=== PATIENT | male | born 1930 | race Caucasian/White ===

== ENCOUNTER 2017-08-07 12:42 | Inpatient (IN) | payer OTHER, MEDICARE ==
[~2017-08-07] VITALS: Ht 165.1 cm; Wt 78.1 kg
--- NOTE | 2017-08-07 12:57 | ED NEURO DEFICIT/STROKE ---
History of Present Illness General Chief Complaint: General Adult Stated Complaint: BIBA FOR GENERAL WEAKNESS Source: old records, EMS Exam Limitations: clinical condition, dementia Vital Signs & Intake/Output Vital Signs & Intake/Output Vital Signs Date Time Temp Pulse Resp B/P B/P Pulse O2 O2 Flow FiO2 Mean Ox Delivery Rate 08/07 1424 88 18 119/64 99 Room Air 08/07 1247 96.4 84 20 97/62 97 Room Air Allergies Coded Allergies: selegiline (UNKNOWN 08/07/17) Reconcile Medications Aspirin (Aspirin*) 325 MG TABLET 1 TAB PO DAILY HEART HEALTH (Reported) Carbidopa/Levodopa (Sinemet 25-100 MG Tablet) 25 MG-100 MG TABLET 1 TAB PO TID PARKINSON'S (Reported) Divalproex Sodium (Depakote Sprinkle) 125 MG CAP.SPRINK 1 CAP PO BID UNKNOWN (Reported) Escitalopram Oxalate (Lexapro) 10 MG TABLET 1 TAB PO DAILY DEPRESSION ( Reported) Lisinopril 5 MG TABLET 1 TAB PO DAILY BP (Reported) Metoprolol Tartrate 25 MG TABLET 1 TAB PO BID HIGH BP (Reported) Multivitamin (Daily Value) 1 EACH TABLET 1 TAB PO DAILY SUPPLEMENT (Reported) Polyethylene Glycol 3350 (Miralax) 17 GRAM POWD.PACK 1 PAC PO DAILY CONSTIPATION (Reported) dissolve in water Potassium Chloride (Klor-Con Sprinkle) 10 MEQ CAPSULE.ER 20 MEQ PO DAILY HYPOKALEMIA (Reported) Sennosides/Docusate Sodium (Senokot-S Tablet) 8.6 MG-50 MG TABLET 1 TAB PO AT BEDTIME CONSTIPATION (Reported) Triage Note: PT BIBA FROM [facility] WITH GEN WEAKNESS. STAFF IS QUESTIONING A LT SIDED WEAKNESS. PT HAS HX OF DEMENTIA AND PARKINSONS. NOTED WITH DROOLING TO RT SIDE OF MOUTH. PT NONVERBAL FOR EVAL. PT UNABLE TO FOLLOW COMMANDS FOR EVAL. UNABLE TO ACCURATELY ASSESS NEURO EXAM. PER ECF PT IS NORMALLY MORE ALERT. Triage Nurses Notes Reviewed? yes Onset: Abrupt Duration: constant Timing: single episode today Severity: severe New Weakness: LUE, LLE, left facial HPI: Patient is an 87-year-old male with a past medical history of hypertension, major depressive disorder, thyrotoxicosis, Parkinson's dementia, atrial fibrillation who was brought in by ambulance from his [facility] in which history is limited due to clinical presentation and past medical history in which W 10 indicates and EMS indicates that at approximately 830-9 AM staff noticed patient had to have mental status changes and acute onset of left-sided upper and lower extremity weakness and left-sided facial droop. Symptoms still continue I discussed the patient with the care home facility nurse who states that patient's baseline is alert and oriented and staff noted at breakfast today around 9 AM the patient was drooling and not swallowing his apple juice where symptoms still persisted of left-sided facial droop and lower extremity and upper extremity weakness and patient was brought in by ambulance (González Polanco) Past History Travel History Traveled to [place] past 21 day No Medical History Any Pertinent Medical History? see below for history Cardiovascular: AFIB, hypertension Other Medical Hx: PARKINSONS DEMENTIA Surgical History Surgical History: unobtainable Family History Hx Contributory? No (González Polanco) Review of Systems Review of Systems Constitutional: Reports: see HPI, weakness. EENTM: Reports: no symptoms. Respiratory: Reports: no symptoms. Cardiovascular: Reports: no symptoms. GI: Reports: no symptoms. Genitourinary: Reports: no symptoms. Musculoskeletal: Reports: see HPI. Skin: Reports: no symptoms. Neurological/Psychological: Reports: no symptoms. Hematologic/Endocrine: Reports: no symptoms. Immunologic/Allergic: Reports: no symptoms. All Other Systems: Reviewed and Negative (González Polanco) Physical Exam Physical Exam General Appearance: no apparent distress, lethargic Head: atraumatic Eyes: Bilateral: PERRL, EOMI. Ears, Nose, Throat: moist mucous membrane Neck: normal inspection Respiratory: no respiratory distress Cardiovascular: irregularly irregular Gastrointestinal: normal bowel sounds, soft, non-tender Cranial Nerves: PERRL, facial asymmetry, facial droop Motor/Sensory: weak motor strength LUE, weak motor strength LLE Skin: intact Comments: Noted left eye ptosis and surrounding erythema and yellow purulence Noted left-sided facial and mouth droop Left upper extremity unable to move no resistance against gravity Left lower extremity unable to move no resistance against gravity Right upper extremity resistance against gravity Right lower extremity resistance against gravity Core Measures CVA/TIA Diagnosis: Yes NIH Stroke Scale NIH Stroke Scale Response Value Level of Consciousness drowsy 1 LOC Commands obeys one correctly 1 Best Gaze normal 0 Visual [place] no visual loss 0 Facial Paresis partial 2 Motor Arm - Left no drift 0 Motor Arm - Right no drift 0 Motor Leg - Left no effort against gravity 3 Motor Leg - Right no effort against gravity 3 Best Language mute 3 Dysarthria intubated/physical mahad 0 Total 13 Date Last Known Well: 08/07/17 Time Last Known Well: 09 Symptom Start Date: 08/07/17 Symptom Start Time: 0830 Swallow Evaluation Fail Swallow eval date 08/07/17 Swallow eval time 1300 Sepsis Present: No Sepsis Focused Exam Completed? No (Carolann CHO,González) Progress Differential Diagnosis: acute glaucoma, Viera's Palsy, drug intoxication, electrolyte imbalance, encephalitis, hypoglycemia, intracranial Hem., intracranial mass/tumor, meningitis, migraine FERRER, seizure disorder, stroke, subarachnoid Hem., vertebrobasilar insuff. Plan of Care: Orders Procedure Date/time Status LACTIC ACID 08/07 UNK Complete Nothing by Mouth 08/07 D Active LACTIC ACID 08/07 1556 Active Patient Data 08/07 1445 Active ED Holding Orders 08/07 1441 Active Admit to inpatient 08/07 1441 Active Vital Signs 08/07 1441 Active Code Status 08/07 1441 Active Intake & Output 08/07 1337 Active THYROID STIMULATING HORMONE 08/07 1326 Complete MAGNESIUM 08/07 1326 Complete FREE T4 08/07 1326 Complete NIH Stroke Scale 08/07 1300 Active TROPONIN LEVEL 08/07 1256 Complete COMPREHENSIVE METABOLIC PANEL 08/07 1256 Complete CBC WITHOUT DIFFERENTIAL 08/07 1256 Complete EKG 08/07 1256 Active Laboratory Tests 08/07/17 1420: Lactic Acid 2.4 H 08/07/17 1326: Anion Gap 13, Estimated GFR > 60, BUN/Creatinine Ratio 27.1 H, Glucose 73, Calcium 8.6, Magnesium 1.9, Total Bilirubin 1.2, AST 15 L, ALT 16 L, Alkaline Phosphatase 195 H, Troponin I 0.01, Total Protein 5.8 L, Albumin 3.1 L, Globulin 2.7, Albumin/Globulin Ratio 1.1, TSH 0.623, Free T4 1.21, CBC w Diff NO MAN DIFF REQ, RBC 4.62 L, MCV 90.6, MCH 29.7, MCHC 32.8 L, RDW 14.7 H, MPV 7.9, Gran % 73.5, Lymphocytes % 14.8 L, Monocytes % 9.0, Eosinophils % 2.0, Basophils % 0.7, Absolute Granulocytes 5.6, Absolute Lymphocytes 1.1 L, Absolute Monocytes 0.7 H, Absolute Eosinophils 0.1, Absolute Basophils 0.1 08/07/17 1302: Magnesium Cancelled, TSH Cancelled, Free T4 Cancelled Patient on initial examination and due to past medical history and presentation has concerns of CVA with left-sided deficit Patient passed gag reflex and however was not able to swallow 3 ounces of water Initial CT scan was unremarkable for hemorrhage Aspirin was administered AK I placed a phone call left a message to patient's primary contact daughter Jacqueline RICHARDSON Patient's daughter did present to the emergency room I discussed my concerns of CVA in which she was aware patient is a DNR per power of real estate associate attorney and medical records 1400 - Discussed patient with Dr. Murphy who advised the patient could be a candidate for TPA in which the family members left the emergency room for this discussion I made several attempts to call patient's daughter on cell phone and home phone number to call me back to discuss tPA administration The daughter did call back in which they were made aware of risks and benefits of TPA declined TPA administration for [place] Dr. Benitez discussed admission with hospitalist Diagnostic Imaging: Viewed by Me: CT Scan. Discussed w/RAD: CT Scan. Radiology Impression: no acute abnormality Initial ED EKG: AFIB, 83 BPM,AFIB Comments: PATIENT: LONI DAVISON PRESENT AGE: 87 PATIENT ACCOUNT NO: [id number] : [birth year] LOCATION: [facility] ORDERING PHYSICIAN: González CHO SERVICE DATE: 08/07/17 EXAM TYPE: CAT - CT HEAD WO IV CONTRAST EXAMINATION: CT HEAD WITHOUT CONTRAST CLINICAL INFORMATION: Left-sided weakness, CVA. COMPARISON: None. TECHNIQUE: Contiguous axial imaging was performed from the skull base to vertex without intravenous administration of contrast. DLP: 578.89 mGy-cm FINDINGS: There is no evidence of acute intracranial hemorrhage or territorial infarction. No abnormal mass effect or midline shift is seen. Grubbs to white matter differentiation is well preserved. No extra-axial fluid collections are identified. The ventricles and sulci are commensurately prominent consistent with severe diffuse volume loss. There is extensive low attenuation in the periventricular and subcortical white matter, consistent with chronic microvascular ischemic disease. There are lacunar infarcts in the basal ganglia bilaterally. There are mild calcifications of the cavernous internal carotid arteries bilaterally. There are no acute fractures. There are no large scalp contusions or hematomas. There is trace fluid at the left mastoid tip. The visualized paranasal sinuses are well-aerated. IMPRESSION: 1. There are no acute bleeds or territorial infarct. There is extensive chronic microvascular ischemic disease, and a small area of more acute ischemia cannot be excluded on the basis of this study. 2. This critical result was discussed with González Vuong by telephone on 08/07/2017 1:19 PM and it was ascertained that the content and urgency of the report was understood at the time of direct communication. DICTATED BY: Juan David Reddy MD DATE/TIME DICTATED:08/07/171310 (González Polanco) Departure Departure Disposition: STILL A PATIENT Condition: Guarded Clinical Impression Primary Impression: CVA (cerebral vascular accident) Referrals: Brandy Foote MD (PCP/Family) Departure Forms: Customer Survey General Discharge Information Admission Note Documentation of Exam: Documentation of any treatments & extenuating circumstances including Concerns Regarding Discharge (functional status, medication knowledge or non-compliance, living conditions, etc.) that warrant an admission rather than observation: [ Patient requires telemetry monitoring carotid ultrasounds neurology consultation FREQUENT vital sign check] (González Polanco) Admission Note Spoke With: Miguel Ángel Mccoy MD Documentation of Exam: Documentation of any treatments & extenuating circumstances including Concerns Regarding Discharge (functional status, medication knowledge or non-compliance, living conditions, etc.) that warrant an admission rather than observation: PA/NAVIGATION OFFICER Co-Sign Statement Statement: ED Attending supervision documentation- [X] I saw and evaluated the patient. I have also reviewed all the pertinent lab results and diagnostic results. I agree with the findings and the plan of care as documented in the PA's/NAVIGATION OFFICER's documentation. [X] I have reviewed the ED Record and agree with the PA's/NAVIGATION OFFICER's documentation. [] Additions or exceptions (if any) to the PAs/NAVIGATION OFFICER's note and plan are summarized below: [Last seen normal at 8:30 this morning. Patient has dementia as well as Parkinson's and is unable to provide any history. Patient has left-sided deficits. Neurology has been consult.] (Emmanuel BETH,Cruzito El) Critical Care Note Critical Care Note Critical Care Time: 30-74 min (González Polanco) [Last seen normal at 8:30 this morning. Patient has dementia as well as Parkinson's and is unable to provide any history. Patient has left-sided deficits. Neurology has been consult.] (Emmanuel BETH,Cruzito El) Critical Care Note Critical Care Note Critical Care Time: 30-74 min (González Polanco)
--- NOTE | 2017-08-07 13:24 | CT SCAN REPORT ---
EXAMINATION: CT HEAD WITHOUT CONTRAST CLINICAL INFORMATION: Left-sided weakness, CVA. COMPARISON: None. TECHNIQUE: Contiguous axial imaging was performed from the skull base to vertex without intravenous administration of contrast. DLP: 578.89 mGy-cm FINDINGS: There is no evidence of acute intracranial hemorrhage or territorial infarction. No abnormal mass effect or midline shift is seen. Grubbs to white matter differentiation is well preserved. No extra-axial fluid collections are identified. The ventricles and sulci are commensurately prominent consistent with severe diffuse volume loss. There is extensive low attenuation in the periventricular and subcortical white matter, consistent with chronic microvascular ischemic disease. There are lacunar infarcts in the basal ganglia bilaterally. There are mild calcifications of the cavernous internal carotid arteries bilaterally. There are no acute fractures. There are no large scalp contusions or hematomas. There is trace fluid at the left mastoid tip. The visualized paranasal sinuses are well-aerated. IMPRESSION: 1. There are no acute bleeds or territorial infarct. There is extensive chronic microvascular ischemic disease, and a small area of more acute ischemia cannot be excluded on the basis of this study. 2. This critical result was discussed with González Vuong by telephone on 08/07/2017 1:19 PM and it was ascertained that the content and urgency of the report was understood at the time of direct communication.
[2017-08-07 13:40] LABS: ABSOLUTE BASOPHIL COUNT 0.1 /CUMM (0.0-0.2); ABSOLUTE EOSINOPHIL COUNT 0.1 /CUMM (0.0-0.7); ABSOLUTE GRANULOCYTE CT 5.6 /CUMM (1.4-6.5); ABSOLUTE LYMPH COUNT 1.1 /CUMM (1.2-3.4); ABSOLUTE MONOCYTE COUNT 0.7 /CUMM (0.10-0.60); BASOPHIL % 0.7 % (0.0-2.0); GRANULOCYTE % 73.5 % (42.2-75.2); HEMATOCRIT 41.9 % (42-52); MEAN CORPUSCULAR HGB 29.7 PG (27.0-31.0); MEAN CORPUSCULAR HGB CONC 32.8 G/DL (33.0-37.0); MEAN CORPUSCULAR VOLUME 90.6 FL (80.0-94.0); MEAN PLATELET VOLUME 7.9 FL (7.4-10.4); PLATELET COUNT 155 /CUMM (130-400); RBC DISTRIBUTION WIDTH 14.7 % (11.5-14.5); RED BLOOD CELL CT 4.62 /CUMM (4.70-6.10); WHITE BLOOD CELL COUNT 7.6 /CUMM (4.8-10.8)
[2017-08-07] MEDS ORDERED: ASPIRIN325 M2 PO (14:01)
[2017-08-07] MEDS ORDERED: DAILY VALUE1 EACH PO (14:01)
[2017-08-07] MEDS ORDERED: LEXAPRO10 M1 PO (14:02)
[2017-08-07] MEDS ORDERED: MIRALAX17 G1 PO (14:03)
[2017-08-07] MEDS ORDERED: [UNRECOGNIZED DRUG - OTHER] PO (14:03)
[2017-08-07] MEDS ORDERED: DEPAKOTE SPRIN125 M1 PO (14:04)
[2017-08-07] MEDS ORDERED: METOPROLOL TART25 M1 PO (14:04)
[2017-08-07] MEDS ORDERED: SINEMET 25-1001 EACH PO (14:05)
[2017-08-07] MEDS ORDERED: LISINOPRIL5 M1 PO (14:05)
[2017-08-07] MEDS ORDERED: SENOKOT-S TABL1 EACH PO (14:06)
--- NOTE | 2017-08-07 14:19 | CT SCAN REPORT ---
EXAMINATION: CT SCAN OF THE ORBITS WITHOUT CONTRAST CLINICAL INDICATION: Left orbital erythema. Evaluate orbital or periorbital cellulitis. COMPARISON: None. TECHNIQUE: CT scan of the orbits was obtained in the axial plane without intravenous contrast. The data was postprocessed at the microbiology technologist workstation with generation of coronal and sagittal reformatted images. Images are suboptimal due to patient positioning and kyphosis. DLP: 578.89 mGy-cm. FINDINGS: There is mild soft tissue swelling along the left infraorbital soft tissues laterally. The globes are symmetric. The lenses are in normal position. The extraocular muscles are symmetric and normal in appearance. The retrobulbar fat is maintained. The lacrimal glands appear normal. The superior ophthalmic veins are not well visualized. Views through the sella are unremarkable. Intracranially, there is commensurate prominence of the ventricles and sulci consistent with severe diffuse volume loss. IMPRESSION: 1. There is mild soft tissue swelling along the left infraorbital soft tissues laterally. Both globes appear intact. Suboptimal study due to patient positioning and angulation. 2. There is commensurate prominence of the ventricles and sulci consistent with severe diffuse volume loss.
--- NOTE | 2017-08-07 14:59 | History & Physical ---
General Information and HPI Allergies/Medications Allergies: Coded Allergies: selegiline (UNKNOWN 08/07/17) Home Med list Aspirin (Aspirin*) 325 MG TABLET 1 TAB PO DAILY HEART HEALTH (Reported) Carbidopa/Levodopa (Sinemet 25-100 MG Tablet) 25 MG-100 MG TABLET 1 TAB PO TID PARKINSON'S (Reported) Divalproex Sodium (Depakote Sprinkle) 125 MG CAP.SPRINK 1 CAP PO BID UNKNOWN (Reported) Escitalopram Oxalate (Lexapro) 10 MG TABLET 1 TAB PO DAILY DEPRESSION ( Reported) Lisinopril 5 MG TABLET 1 TAB PO DAILY BP (Reported) Metoprolol Tartrate 25 MG TABLET 1 TAB PO BID HIGH BP (Reported) Multivitamin (Daily Value) 1 EACH TABLET 1 TAB PO DAILY SUPPLEMENT (Reported) Polyethylene Glycol 3350 (Miralax) 17 GRAM POWD.PACK 1 PAC PO DAILY CONSTIPATION (Reported) dissolve in water Potassium Chloride (Klor-Con Sprinkle) 10 MEQ CAPSULE.ER 20 MEQ PO DAILY HYPOKALEMIA (Reported) Sennosides/Docusate Sodium (Senokot-S Tablet) 8.6 MG-50 MG TABLET 1 TAB PO AT BEDTIME CONSTIPATION (Reported) Past History Travel History Traveled to [place] past 21 day No Medical History Neurological: dementia, Parkinson's disease EENT: cataracts Cardiovascular: AFIB, hypertension Psychiatric: depression Other Medical Hx: PARKINSONS DEMENTIA Surgical History Surgical History: unobtainable Past Family/Social History Psychosocial History ETOH Use: denies use Illicit Drug Use: denies illicit drug use Core Measures/Misc (03/16) Cerebrovascular Accident CVA/TIA Diagnosis: Yes Date Last Known Well: 08/07/17 Time Last Known Well: 0900 Symptom Start Date: 08/07/17 Symptom Start Time: 0830 Swallow Evaluation Fail
--- NOTE | 2017-08-07 14:59 | History & Physical ---
Annamaria Escalante MD,[facility] 08/07/17 1458: General Information and HPI MD Statement: I have seen and personally examined LONI DAVISON and documented this H&P. The patient is a 87 year old M who presented with a patient stated chief complaint of [altered mental status and weakness]. Source of Information: old records, W10 Exam Limitations: unable to give history History of Present Illness: Patient is a 87 y M with PMH of afib (on Aspirin), thyrotoxicosis, HTN, MDD and parkinson was BIBA to ED for evaluation of left side weakness and change in mental status. Patient was not able to verbalize himself during the interview and previous records and information from ED department long with phone interview with night worker "KAITLYN" and daughter Jacqueline were interviewed for completing history. Patient is a resident of [facility]. According to the records patient was in his usual state of health till this morning around 9am that he was found with staff to be more confused, he was also found to have drooling and was not able to swallow his apple juice. He also had weakness of left chris upper and lower extremity weakness. EMS was called and patient was brought to ED. According to the records in his baseline patient has advanced dementia, doesn't walk, rarely talks and answers to question with yes and no, is more alert compared to today. Daughter noted that she last visited him on June 01 but in his baseline he is able to talk but no walking. Daughter or nursing facility were not ever of the reason for not being on anticoagulation due to PCP. They didn't know the last time for hospitalization but noted that most of the care was done in [facility]. He also follows Dr Foote as his PCP. Allergies/Medications Allergies: Coded Allergies: selegiline (UNKNOWN 08/07/17) Home Med list Aspirin (Aspirin*) 325 MG TABLET 1 TAB PO DAILY HEART HEALTH (Reported) Carbidopa/Levodopa (Sinemet 25-100 MG Tablet) 25 MG-100 MG TABLET 1 TAB PO TID PARKINSON'S (Reported) Divalproex Sodium (Depakote Sprinkle) 125 MG CAP.SPRINK 1 CAP PO BID UNKNOWN (Reported) Escitalopram Oxalate (Lexapro) 10 MG TABLET 1 TAB PO DAILY DEPRESSION ( Reported) Lisinopril 5 MG TABLET 1 TAB PO DAILY BP (Reported) Metoprolol Tartrate 25 MG TABLET 1 TAB PO BID HIGH BP (Reported) Multivitamin (Daily Value) 1 EACH TABLET 1 TAB PO DAILY SUPPLEMENT (Reported) Polyethylene Glycol 3350 (Miralax) 17 GRAM POWD.PACK 1 PAC PO DAILY CONSTIPATION (Reported) dissolve in water Potassium Chloride (Klor-Con Sprinkle) 10 MEQ CAPSULE.ER 20 MEQ PO DAILY HYPOKALEMIA (Reported) Sennosides/Docusate Sodium (Senokot-S Tablet) 8.6 MG-50 MG TABLET 1 TAB PO AT BEDTIME CONSTIPATION (Reported) Past History Travel History Traveled to [place] past 21 day No Medical History Neurological: dementia, Parkinson's disease EENT: cataracts Cardiovascular: AFIB, hypertension Psychiatric: depression Other Medical Hx: PARKINSONS DEMENTIA Surgical History Surgical History: unobtainable Past Family/Social History Psychosocial History ETOH Use: denies use Illicit Drug Use: denies illicit drug use Review of Systems Review of Systems Constitutional: Reports: see HPI. Comments Patient is not cooperative, could not verbalize himslef Exam & Diagnostic Data Last 24 Hrs of Vital Signs/I&O Vital Signs Date Time Temp Pulse Resp B/P B/P Pulse O2 O2 Flow FiO2 Mean Ox Delivery Rate 08/07 1424 88 18 119/64 99 Room Air 08/07 1247 96.4 84 20 97/62 97 Room Air Physical Exam General Appearance Alert, Oriented X3, No Acute Distress, not cooperative Patient is not cooperative, could not verbalize himslef, completel neuro exam is not possible Skin Temp/Moisture Exam: Warm/Dry Sepsis Skin Exam (color): Normal for Ethnicity HEENT Atraumatic, EOMI, Mucous Membr. moist/pink, bilateral eye, discharge, patient not cooperative, pupil reflex is not possible Cardiovascular Normal S1, Normal S2, irregular irreg Abdomen Soft, No Tenderness Extremities No Edema Assessment/Plan Assessment: 87 y M, left side hemiparesis and change in mental status PMH of afib (on Asprin), thyrotoxicosis, HTN, MDD and parkinsons VS, Ph Ex at admission: Right-sided hemiparesis, conjunctivitis, BP 97/62, then increased to 11 9/64, DC 84, RR 20, no fever Labs at admission: Hgb 13.7, WBC 7.6, PLT 155, BEP insignificant, lactic acid 2.4, alkaline phosphatase 195, albumin 3.1, Imagings at admission: Head CT: There are no acute bleeds or territorial infarct. There is extensive chronic microvascular ischemic disease, and a small area of more acute ischemia cannot be excluded on the basis of this study. Patient was admitted to telemetry floor for management of following conditions: Left side weakness, change in mental status CVA left hemiparesis could be best explained by a new CVA, specifically considering underlying afib and on only asprin. - admit to telemetry floor - neurochecks, vital checks - NPO pending swallow evaluation - Rectal aspirin 300 mg - Follow neurology note - We will monitor blood pressure for 24 hours to less than 170 and then restart SUKHJINDER inhibitor for blood pressure control - Lipitor 40 mg by mouth after passing swallow evaluation - PT evalaution Chronic medical condition, A. fib, hypertension Patient NPO for now, we will monitor patient and start home medication after passing the test. We will administer IV medications if needed NPO pending swallow evaluation DVT ppx: PHARMACOLOGICAL AND A LPS DNR/DNI As Ranked By This Provider Problem List: 1. CVA (cerebral vascular accident) Core Measures/Misc (03/16) Acute Coronary Syndrome ACS Diagnosis: No Congestive Heart Failure Congestive Heart Failure Diagnosis No Cerebrovascular Accident CVA/TIA Diagnosis: Yes NIH Stroke Scale: Total 22 Date Last Known Well: 08/07/17 Time Last Known Well: 0900 Symptom Start Date: 08/07/17 Symptom Start Time: 0830 Reason tPA not ordered Medical Contraindication (outside of window) Swallow Evaluation Fail Current/Past Hx AFib/AFlutter Yes No Anticoagulant d/t Medical Contraindication (passed window) VTE (View Protocol) VTE Risk Factors Age>40 No Mechanical VTE Prophylaxis d/t N/A MechProphylax Ordered No VTE Pharm Prophylaxis d/t NA PharmProphylax ordered Sepsis (View protocol) Sepsis Present: No Marisa Morgan 08/07/17 2675: Resident Review Statement Resident Statement: examined this patient, discussed with video production intern, reviewed images, amended to note Other Findings: 87-year-old man with history of A. fib on aspirin, hypertension, Parkinson's, depression was brought by ambulance from [facility] chief complaint of facial drooling, altered mental status, weakness of the left side. Information was obtained from the nursing: Apparently before the patient was able to request his maintenance and able to answer questions with yes and no however after the episode and a.m. he had altered mental status as well as unable to follow commands or answer questions. Upon the interview patient was not cooperative however he was able to tell his name and his date of . ROS was unobtainable from the patient. Physical exam was limited due to patient uncooperation. Heart S1-S2 normal with irregular rate Lungs Limited exam clear frontally Abdomen nontender Patient was able to move his right upper and right lower extremities strengths 4 /5 Unable to take reaction to the light on the right eye due to patient uncooperation left eye was reactive to the light Negative babinisky stest extremity and questionable babinski test on the left lower extremity Patient failed swallow eval EKG showed A. fib, low voltage, heart rate 83, QTC 452 CT head : 1. There are no acute bleeds or territorial infarct. There is extensive chronic microvascular ischemic disease, and a small area of more acute ischemia cannot be excluded on the basis of this study. orbital ct : IMPRESSION: 1. There is mild soft tissue swelling along the left infraorbital soft tissues laterally. Both globes appear intact. Suboptimal study due to patient positioning and angulation. assessment CVA with AMS hx of parkinsons hx of HTN hx of afib on aspirin lactic acidosis redness around the left eye plan admit to telemetry not a candidiate for tpa topical abx for the possible bacterial conjectivitis NPO till offical swallow eval rectal aspirin IV depakote CXR to rule out aspiration hold anti HTN meds keep SPB around 170 with PRN IV metoprolol carotid U/S neurology consult echocardiogram pt/ot/speech IV hydration and trend the lactic acid till normalized NPO, DNR/DNI per w 10, dvt prophylaxis mechanical and levonox Leandro Morgan MD 08/07/17 1561: Attending MD Review Statement Attending Statement Attending MD Statement: examined this patient, discuss w/resident/PA/BAKER DOUGHNUT, agreed w/resident/PA/BAKER DOUGHNUT, reviewed EMR data (avail), reviewed images, amended to note Attending Assessment/Plan: The patient is an 87 yo male resident at [facility] with h/o dementia, afib (on ASA) Parkinson's Disease, HTN, & depression who presented this morning in the ED after being found confused and with left sided weakness. He was evaluated in the ED and by Neurology and felt to have an acute right sided CVA with dense left hemiparesis. Possible use of TPA was discussed with family by Neurology and declined. He was found to have gag reflex, however unable to swallow even liquids. Had been in his usual state of health the day prior. 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 Patient seen by Neurology in ED and TPA was discussed and declined by family. Carotid US negative. Plan: Admit to telemetry service. Agree with ASA suppository daily. IV hydration Permissive HTN- keep BP > 140 if possible DNR/DNI per prior wishes. Re-assess swallow tomorrow. If not improving will need to discuss with family possible comfort measures. #HTN- BP low at present. Plan: Hold Metoprolol- will give IV if BP significantly elevated. Hold Lisinopril. #Atrial Fibrillation- not on anti-coagulation (only ASA) due to fall risk. Plan: ASA as above. Holding Metoprolol at present and will follow HR. #Parkinson's Disease- on Carbidopa/Levodopa Plan: Hold as is NPO.
--- NOTE | 2017-08-07 16:07 | Cons- Neurology ---
General Information and HPI Consulting Request Date of Consult: 08/07/17 Requested By: Leandro Morgan MD Reason for Consult: New onset confusion and weakness Source of Information: old records Exam Limitations: unable to give history, clinical condition, confusion, dementia History of Present Illness: 87 y M with PMH of afib (on Asprin), thyrotoxicosis, HTN, MDD and parkinsons was BIBA to ED for evalaution of left side weakness and change in mental status. Patient was not able to verbalize himself during the interview and previous records and information from ED department was used for completing history. Patient is a resident of [facility]. According to the records patient was in his usual state of health till this morning around 9am that he was found by staff to be more confused, he was also found to have drooling and was not able to swallow his apple juice. He also had weakness of left chris upper and lower extremety weakness. According to the records in his baseline he was more alert and oriented. EMS was called and patient was brought to ED. TPA was not given due to family decision. Allergies/Medications Allergies: Coded Allergies: selegiline (UNKNOWN 08/07/17) Home Med List: Aspirin (Aspirin*) 325 MG TABLET 1 TAB PO DAILY HEART HEALTH (Reported) Carbidopa/Levodopa (Sinemet 25-100 MG Tablet) 25 MG-100 MG TABLET 1 TAB PO TID PARKINSON'S (Reported) Divalproex Sodium (Depakote Sprinkle) 125 MG CAP.SPRINK 1 CAP PO BID UNKNOWN (Reported) Escitalopram Oxalate (Lexapro) 10 MG TABLET 1 TAB PO DAILY DEPRESSION ( Reported) Lisinopril 5 MG TABLET 1 TAB PO DAILY BP (Reported) Metoprolol Tartrate 25 MG TABLET 1 TAB PO BID HIGH BP (Reported) Multivitamin (Daily Value) 1 EACH TABLET 1 TAB PO DAILY SUPPLEMENT (Reported) Polyethylene Glycol 3350 (Miralax) 17 GRAM POWD.PACK 1 PAC PO DAILY CONSTIPATION (Reported) dissolve in water Potassium Chloride (Klor-Con Sprinkle) 10 MEQ CAPSULE.ER 20 MEQ PO DAILY HYPOKALEMIA (Reported) Sennosides/Docusate Sodium (Senokot-S Tablet) 8.6 MG-50 MG TABLET 1 TAB PO AT BEDTIME CONSTIPATION (Reported) Current Medications: Current Medications Sig/Ignacio Start time Last Medication Dose Route Stop Time Status Admin Aspirin 300 MG ONCE ONE 08/07 1330 DC 08/07 MO 08/07 1331 1421 Sodium Chloride 500 ML BOLUS ONE 08/07 1545 AC IV 08/07 1644 Sodium Chloride 1,000 ML BOLUS ONE 08/07 1315 DC 08/07 IV 08/07 1514 1428 Valproate Sodium 125 MG BID 08/07 2200 UNir IV Review of Systems Review of Systems: As per HPI. Past History Travel History Traveled to [place] past 21 day No Medical History Neurological: dementia, Parkinson's disease EENT: cataracts Cardiovascular: AFIB, hypertension Psychiatric: depression Other Medical Hx: PARKINSONS DEMENTIA Surgical History Surgical History: unobtainable Psychosocial History ETOH Use: denies use Illicit Drug Use: denies illicit drug use Exam & Diagnostic Data Vital Signs and I&O Vital Signs Date Time Temp Pulse Resp B/P B/P Pulse O2 O2 Flow FiO2 Mean Ox Delivery Rate 08/07 1424 88 18 119/64 99 Room Air 08/07 1247 96.4 84 20 97/62 97 Room Air Physical Exam: Exam is limited due to the patient's condition and lack of cooperation. Resists eye opening however eyes seemed to have extra ocular movements intact and pupils are equal. Face is also symmetric. There is clear flaccid left arm weakness with left upper proximal leg weakness. Tone is rigid throughout with exception of right arm. Toes upgoing on the left. Patient does not say much response to questions but mumbles. Last 48 Hours of Lab Results: Laboratory Tests 08/07 08/07 08/07 1420 1326 1302 Chemistry Sodium (137 - 145 mmol/L) 143 Potassium (3.5 - 5.1 mmol/L) 4.5 Chloride (98 - 107 mmol/L) 106 Carbon Dioxide (22 - 30 mmol/L) 24 Anion Gap (5 - 16) 13 BUN (9 - 20 mg/dL) 19 Creatinine (0.7 - 1.2 mg/dL) 0.7 Estimated GFR (>60 ml/min) > 60 BUN/Creatinine Ratio (7 - 25 %) 27.1 H Glucose (65 - 99 mg/dL) 73 Lactic Acid (0.7 - 2.1 mmol/L) 2.4 H Calcium (8.4 - 10.2 mg/dL) 8.6 Magnesium (1.6 - 2.3 mg/dL) 1.9 Cancelled Total Bilirubin (0.2 - 1.3 mg/dL) 1.2 AST (17 - 59 U/L) 15 L ALT (21 - 72 U/L) 16 L Alkaline Phosphatase (< 127 U/L) 195 H Troponin I (<0.11 ng/ml) 0.01 Total Protein (6.3 - 8.2 g/dL) 5.8 L Albumin (3.5 - 5.0 g/dL) 3.1 L Globulin (1.9 - 4.2 gm/dL) 2.7 Albumin/Globulin Ratio (1.1 - 2.2 %) 1.1 TSH (0.270 - 4.200 uIU/mL) 0.623 Cancelled Free T4 (0.85 - 1.93 ng/dL) 1.21 Cancelled Hematology CBC w Diff NO MAN DIFF REQ WBC (4.8 - 10.8 /CUMM) 7.6 RBC (4.70 - 6.10 /CUMM) 4.62 L Hgb (14.0 - 18.0 G/DL) 13.7 L Hct (42 - 52 %) 41.9 L MCV (80.0 - 94.0 FL) 90.6 MCH (27.0 - 31.0 PG) 29.7 MCHC (33.0 - 37.0 G/DL) 32.8 L RDW (11.5 - 14.5 %) 14.7 H Plt Count (130 - 400 /CUMM) 155 MPV (7.4 - 10.4 FL) 7.9 Gran % (42.2 - 75.2 %) 73.5 Lymphocytes % (20.5 - 51.1 %) 14.8 L Monocytes % (1.7 - 9.3 %) 9.0 Eosinophils % (0 - 5 %) 2.0 Basophils % (0.0 - 2.0 %) 0.7 Absolute Granulocytes (1.4 - 6.5 /CUMM) 5.6 Absolute Lymphocytes (1.2 - 3.4 /CUMM) 1.1 L Absolute Monocytes (0.10 - 0.60 /CUMM) 0.7 H Absolute Eosinophils (0.0 - 0.7 /CUMM) 0.1 Absolute Basophils (0.0 - 0.2 /CUMM) 0.1 Toxicology Valproic Acid (50 - 120 ug/mL) Pending Imaging/Other Studies: IMPRESSION: 1. There are no acute bleeds or territorial infarct. There is extensive chronic microvascular ischemic disease, and a small area of more acute ischemia cannot be excluded on the basis of this study. 2. This critical result was discussed with González Vuong by telephone on 08/07/2017 1:19 PM and it was ascertained that the content and urgency of the report was understood at the time of direct communication. Assessment/Plan Assessment: 87-year-old man with Parkinson's disease who presents with an left dense hemiparesis could be attributable to either a lacunar syndrome or a larger right hemispheric frontal infarction. The patient has A. fib and is only on baby aspirin and this is likely the cause of the stroke. Recommendations: 1. Nothing by mouth until swallow evaluation completed. 2. Rectal aspirin 300 mg still then. 3. Permissive hypertension for the first 24 hours but did not allow systolic to go above 170. 4. Would then start an SUKHJINDER inhibitor or arm for blood pressure. 5. Would add Lipitor 40 mg by mouth daily. 6. PT and OT. 7. DVT prophylaxis with heparin subcutaneous. 8. Echo and carotids. 9. Telemetry. 10. Continue with current Parkinson meds. Consult Acknowledgment - Thank you for your consult request.
--- NOTE | 2017-08-07 16:57 | RADIOLOGY REPORT ---
EXAMINATION: XR PORTABLE CHEST CLINICAL INFORMATION: Coughing COMPARISON: None TECHNIQUE: Portable frontal view of the chest was obtained. FINDINGS: Low lung volumes perhaps related to suboptimal inspiratory effort. Subtle increased opacity at the bases may reflect atelectasis related to the suboptimal inspiration. Cannot exclude infiltrate. Calcification of the dorsal aorta. Cardiac silhouette within normal limits. Pulmonary vascularity normal. Bone and soft tissues unremarkable. IMPRESSION: Slightly limited exam as the lung volumes are low. Possible bilateral bibasilar atelectasis. Cannot exclude evolving infiltrate or pneumonia/aspiration
--- NOTE | 2017-08-07 17:49 | ULTRASOUND REPORT ---
EXAMINATION: DUPLEX BILATERAL CAROTID ULTRASOUND CLINICAL INFORMATION: CVA. Rule out stenosis.. COMPARISON: None. TECHNIQUE: Duplex bilateral carotid US was performed using real-time ultrasound and Doppler techniques (integrating B-mode 2D vascular images, Doppler spectral analysis and color flow Doppler imaging). These techniques were utilized to interrogate the extracranial carotid and vertebral arteries bilaterally. The degree of stenosis is based off criteria similar to NASCET. FINDINGS: No plaque is seen at the carotid bifurcations or within the internal carotid arteries. All velocities are within normal limits. The vertebral arteries are not visualized bilaterally. The external carotid arteries appear normal. IMPRESSION: No evidence of a hemodynamically significant stenosis involving the internal carotid arteries. The vertebral arteries are not visualized on the current exam.
[2017-08-07 18:17] VITALS: BP 102/68
[2017-08-07 22:12] VITALS: BP 108/70
--- NOTE | 2017-08-07 22:33 | Admission Certification ---
Admission Certification Certification Statement - As attending physician, I certify that at the time of - admission, based on clinical presentation, severity of - symptoms, need for further diagnostic testing and - therapeutic interventions, and risk of adverse outcomes - without in-hospital treatment, in my clinical assessment, - this patient requires an acute hospital stay for a minimum - of two nights or longer. I have also considered psychsocial - factors such as support system, advanced age, financial - issues, cognitive issues, and failed out-patient treatments, - past re-admission history, safety of patient, and lack of - compliance as applicable. Specific rationale supporting this admission is: The patient presents with acute confusion and left sided weakness (upper and lower extremities) c/w significant right sided CVA. H/O Parkinson's and depression- family declined TPA. Will admit to telemetry (in afib) and follow HR. Rectal ASA at present (failed swallow). DNR/DNI and if not improving will need to discuss comfort measures.
[2017-08-08 05:57] VITALS: BP 112/62
--- NOTE | 2017-08-08 07:29 | PN- Housestaff ---
See Addendum Subjective Follow-up For: CVA Tele-Events Since Last Visit: Aquilino santos, pulse rate 77-88 Subjective: Patient visited today, was lying in bed comfortably in no acute distress, was alert, did not answer to questions, did not follow orders. Orientation could not be evalauted. No fever. Failed swallow evalution, planned to repeat tomorrow. LA remained high, increased fluids rate. had conversation with lázaro twice regarding Mr Linares's care. Resident Dr Morgan interviewed daughter regarding consent for IV contrast administration possibly before CT scan for evaluation of increased CT scan. Review of Systems Constitutional: Reports: see HPI. Objective Last 24 Hrs of Vital Signs/I&O Vital Signs Date Time Temp Pulse Resp B/P B/P Pulse O2 O2 Flow FiO2 Mean Ox Delivery Rate 08/08 1435 97.6 88 20 110/68 96 Room Air 08/08 0557 97.8 71 20 112/62 08/07 2212 Room Air 08/07 2212 97.7 91 18 108/70 97 08/07 1817 98.4 93 20 102/68 969 08/07 1744 97.6 91 18 112/75 98 Room Air 08/07 1640 97.7 83 20 130/67 98 Room Air Intake & Output 08/08 1600 08/08 0800 08/08 0000 Intake Total 2000 1600 1075 Output Total 200 Balance 1800 1600 1075 Intake, IV 2000 1600 1075 Output, Urine 200 Patient 172 lb Weight Weight Bed scale Measurement Method Physical Exam General Appearance: Alert, No Acute Distress, not cooperative Skin: No Significant Lesion Skin Temp/Moisture Exam: Warm/Dry Sepsis Skin Exam (color): Normal for Ethnicity HEENT: Atraumatic, Mucous Membr. moist/pink, Atraumatic, EOMI, Mucous Membr. moist/pink, bilateral eye, discharge, patient not cooperative, pupil reflex is not possible Will re-evalaute tomorrow Cardiovascular: Normal S1, Normal S2, irreg irreg Lungs: bilateral crackles and ronchi Abdomen: Soft, No Tenderness Neurological: Could not be evaluated due to patient not being cooperative Extremities: No Edema Current Medications: Current Medications Sig/Ignacio Start time Last Medication Dose Route Stop Time Status Admin Aspirin 300 MG DAILY 08/08 1000 AC 08/08 OR 1307 Dextrose/Sodium 1,000 ML Q13H 08/07 1845 AC 08/08 Chloride IV 1359 Enoxaparin Sodium 40 MG DAILY 08/08 1000 AC 08/08 SC 1307 Erythromycin 1 NATY 4 TIMES/DAY 08/07 1837 AC 08/08 OPH 1307 Sodium Chloride 1,000 ML BOLUS ONE 08/08 1100 DC 08/08 IV 08/08 1159 1227 Sodium Chloride 1,000 ML BOLUS ONE 08/08 0930 DC 08/08 IV 08/08 1029 0926 Sodium Chloride 1,000 ML BOLUS ONE 08/07 1900 DC 08/07 IV 08/07 1959 1916 Sodium Chloride 500 ML BOLUS ONE 08/07 1845 CAN IV 08/07 1944 Sodium Chloride 500 ML BOLUS ONE 08/07 1545 DC 08/07 IV 08/07 1644 1632 Sodium Chloride 1,000 ML BOLUS ONE 08/07 1315 DC 08/07 IV 08/07 1514 1428 Valproate Sodium 125 MG BID 08/07 220 CAN IV Valproate Sodium 125 MG BID 08/07 2200 AC 08/08 Sodium Chloride 50 ML IV 1054 Last 24 Hrs of Lab/Robert Results Last 24 Hrs of Labs/Mics: Laboratory Tests 08/08/17 1405: Lactic Acid 2.8 H 08/08/17 1225: Urinalysis LIGHT H, Urine Color YEL, Urine Clarity CLEAR, Urine pH 6.0, Ur Specific [place] >= 1.030, Urine Protein NEG, Urine Ketones TRACE H, Urine Nitrite NEG, Urine Bilirubin NEG, Urine Urobilinogen 0.2, Ur Leukocyte Esterase TRACE H, Ur Microscopic SEDIMENT EXAMINED, Urine RBC 1-3, Urine WBC 10-15 H, Ur Epithelial Cells OCCAS, Urine Bacteria RARE H, Hyaline Casts 3-5 H, Granular Casts RARE H, Urine Mucus PACKD H, Urine Hemoglobin NEG, Urine Glucose NEG 08/08/17 0722: Anion Gap 13, Estimated GFR > 60, BUN/Creatinine Ratio 22.5, Lactic Acid 3.4 H, Total Bilirubin 1.0, Direct Bilirubin 0.3, AST 14 L, ALT 23, Alkaline Phosphatase 173 H, Creatine Kinase 61, Troponin I 0.04, C-Reactive Prot, Quant 3.9 H, Total Protein 5.4 L, Albumin 2.9 L, CBC w Diff NO MAN DIFF REQ, RBC 4.15 L, MCV 90.7, MCH 30.3, MCHC 33.5, RDW 14.9 H, MPV 8.0, Gran % 69.4, Lymphocytes % 17.6 L, Monocytes % 8.2, Eosinophils % 4.4, Basophils % 0.4, Absolute Granulocytes 4.1, Absolute Lymphocytes 1.0 L, Absolute Monocytes 0.5, Absolute Eosinophils 0.3, Absolute Basophils 0 08/08/17 0300: Lactic Acid 2.6 H 08/07/17 2200: Lactic Acid 2.5 H 08/07/17 1732: Lactic Acid 2.4 H Microbiology 08/08 1405 BLOOD: Blood Culture - RECD 08/08 1400 BLOOD: Blood Culture - RECD 08/08 1225 URINE ROUT: Urine Culture - RECD Assessment/Plan Assessment: 87 y M, left side hemiparesis and change in mental status PMH of afib (on Asprin), thyrotoxicosis, HTN, MDD and parkinsons VS, Ph Ex at admission: Right-sided hemiparesis, conjunctivitis, BP 97/62, then increased to 11 9/64, OR 84, RR 20, no fever Labs at admission: Hgb 13.7, WBC 7.6, PLT 155, BEP insignificant, lactic acid 2.4, alkaline phosphatase 195, albumin 3.1, Imagings at admission: Head CT: There are no acute bleeds or territorial infarct. There is extensive chronic microvascular ischemic disease, and a small area of more acute ischemia cannot be excluded on the basis of this study. Patient was admitted to telemetry floor for management of following conditions: Left side weakness, change in mental status CVA left hemiparesis could be best explained by a new CVA, specifically considering underlying afib and on only asprin. Echo: 1. This was a technically difficult study 2. Mild aortic sclerosis is present with no valvular stenosis. Minimal aortic insufficiency is present. 3. Mitral leaflet thickening is present with mild mitral insufficiency and moderate left atrial enlargement. 4. A small circumferential pericardial effusion is present which is hemodynamically insignificant. 5. The left ventricular chamber size is normal with hyperdynamic systolic function. The ejection fraction is greater than 70%. There are no obvious resting wall motion abnormalities. 6. The right heart structures were not well visualized. Mild tricuspid insufficiency is present. There is no evidence of pulmonary hypertension. 7. There appears to be lipomatous atrial septal hypertrophy present. 8. The patient appeared to be in atrial fibrillation during the examination. Further evaluation with ECG or Holter monitor is recommended if clinically indicated. - Continue telemetry floor - neurochecks, vital checks - Failed swallow evaluation, would be repeated tomorrow - NPO pending swallow evaluation - Rectal aspirin 300 mg - Follow neurology note - We will monitor blood pressure for 24 hours to less than 170 and then restart SUKHJINDER inhibitor for blood pressure control - Lipitor 40 mg by mouth after passing swallow evaluation - PT evalaution Chronic medical condition, A. fib, hypertension Patient is still, we will monitor patient and start home medication after passing the test. We will administer IV medications if needed NPO pending swallow evaluation DVT ppx: PHARMACOLOGICAL AND A LPS DNR/DNI Problem List: 1. CVA (cerebral vascular accident) Pain Ratin Pain Location: None Pain Goal: Pain 4 or less Pain Plan: Continue current plan Tomorrow's Labs & Rationales: CBc BEP
--- NOTE | 2017-08-08 07:51 | ECHOCARDIOGRAM REPORT ---
LONI DAVISON Age: 87 : 1930 Gender: M Exam Date: 08/07/2017 19:39 Exam Location: 1 [address] Ht (in): Wt (lb): BSA: BP: 102 / 68 Ordering Physician: Marisa Morgan MD Referring Physician: Marisa Morgan MD Technologist: Marie Ortega [facility] Room Number: [id number] Indications: STROKE Rhythm: Technical Quality: Fair, Technically difficult study FINDINGS Left Ventricle Normal size left ventricle. No obvious regional wall motion abnormalities. Normal left ventricular ejection fraction estimated at 65-70%. Right Ventricle Right ventricle not well visualized, grossly normal. Right Atrium Normal right atrial size. Left Atrium Moderate left atrial dilatation. Mitral Valve Mitral valve thickened. Mild mitral regurgitation. Aortic Valve Trileaflet aortic valve. Diffuse thickening (sclerosis) of the aortic valve cusps without reduced excursion. No aortic stenosis. Trace aortic regurgitation. Tricuspid Valve Tricuspid valve not well visualized, grossly normal. Mild tricuspid regurgitation. Right ventricular systolic pressure estimated at 28 mmHg. Pulmonic Valve Pulmonic valve not well visualized, grossly normal. Pericardium Small pericardial effusion. Great Vessels Aortic root and proximal ascending aorta not well visualized, grossly normal. CONCLUSIONS 1. This was a technically difficult study 2. Mild aortic sclerosis is present with no valvular stenosis. Minimal aortic insufficiency is present. 3. Mitral leaflet thickening is present with mild mitral insufficiency and moderate left atrial enlargement. 4. A small circumferential pericardial effusion is present which is hemodynamically insignificant. 5. The left ventricular chamber size is normal with hyperdynamic systolic function. The ejection fraction is greater than 70%. There are no obvious resting wall motion abnormalities. 6. The right heart structures were not well visualized. Mild tricuspid insufficiency is present. There is no evidence of pulmonary hypertension. 7. There appears to be lipomatous atrial septal hypertrophy present. 8. The patient appeared to be in atrial fibrillation during the examination. Further evaluation with ECG or Holter monitor is recommended if clinically indicated. Dallin Becerril M.D. (Electronically Signed) Final Date: 08 August 2017 07:50 MEASUREMENTS (Male / Female) Normal Values 2D ECHO LV Diastolic Diameter PLAX 3.2 cm 4.2 - 5.9 / 3.9 - 5.3 cm LV Systolic Diameter PLAX 1.3 cm 2.1 - 4.0 cm LV Fractional Shortening PLAX 59.4 % 25 - 46 % LV Ejection Fraction 2D Teich 89.9 % IVS Diastolic Thickness 1.1 cm LVPW Diastolic Thickness 1.1 cm LV Relative Wall Thickness 0.7 RV Internal Dim ED PLAX 2.7 cm 1.9 - 3.8 cm LVOT Diameter 1.9 cm Aortic Root Diameter 3.1 cm LA Systolic Diameter LX 3.4 cm 3.0 - 4.0 / 2.7 - 3.8 cm LA Volume 41.0 cm 18 - 58 / 22 - 52 cm Ascending Aorta Diameter 3.2 cm DOPPLER AV Peak Velocity 101.0 cm/s AV Peak Gradient 4.1 mmHg AV Mean Velocity 70.4 cm/s AV Mean Gradient 2.0 mmHg AV Velocity Time Integral 25.8 cm LVOT Peak Velocity 60.2 cm/s LVOT Peak Gradient 1.4 mmHg LVOT Mean Velocity 42.5 cm/s LVOT Mean Gradient 1.0 mmHg LVOT Velocity Time Integral 14.9 cm LVOT Stroke Volume 42.2 cm AV Area Cont Eq vti 1.6 cm AV Area Cont Eq pk 1.7 cm MV Peak Velocity 112.0 cm/s MV Peak Gradient 5.0 mmHg MV Mean Velocity 59.1 cm/s MV Mean Gradient 2.0 mmHg Mitral E Point Velocity 80.9 cm/s MV PHT Velocity 118.0 cm/s MV Deceleration [place] 547.0 cm/s MV Pressure Half Time 64.7 ms MV Area PHT 3.4 cm MV Deceleration Time 180.0 ms TR Peak Velocity 250.0 cm/s TR Peak Gradient 25.0 mmHg Right Atrial Pressure 5.0 mmHg Pulmonary Artery Systolic Pressu 30.0 mmHg Right Ventricular Systolic Press 30.0 mmHg PV Peak Velocity 88.4 cm/s PV Peak Gradient 3.1 mmHg PV Mean Velocity 60.1 cm/s PV Mean Gradient 2.0 mmHg PV Velocity Time Integral 16.7 cm LV E' Lateral Velocity 8.5 cm/s Mitral E to LV E' Lateral Ratio 9.5 LV E' Septal Velocity 7.0 cm/s Mitral E to LV E' Septal Ratio 11.5
[2017-08-08 08:10] LABS: ABSOLUTE BASOPHIL COUNT 0 /CUMM (0.0-0.2); ABSOLUTE EOSINOPHIL COUNT 0.3 /CUMM (0.0-0.7); ABSOLUTE GRANULOCYTE CT 4.1 /CUMM (1.4-6.5); ABSOLUTE MONOCYTE COUNT 0.5 /CUMM (0.10-0.60); BASOPHIL % 0.4 % (0.0-2.0); EOSINOPHIL % 4.4 % (0-5); GRANULOCYTE % 69.4 % (42.2-75.2); HEMATOCRIT 37.7 % (42-52); MEAN CORPUSCULAR HGB 30.3 PG (27.0-31.0); MEAN CORPUSCULAR HGB CONC 33.5 G/DL (33.0-37.0); MEAN CORPUSCULAR VOLUME 90.7 FL (80.0-94.0); PLATELET COUNT 151 /CUMM (130-400); RBC DISTRIBUTION WIDTH 14.9 % (11.5-14.5); RED BLOOD CELL CT 4.15 /CUMM (4.70-6.10); WHITE BLOOD CELL COUNT 5.9 /CUMM (4.8-10.8)
[2017-08-08 14:35] VITALS: BP 110/68
--- NOTE | 2017-08-08 16:16 | RADIOLOGY REPORT ---
EXAMINATION: CR PORTABLE CHEST CLINICAL INFORMATION: Coughing. Rule out aspiration. COMPARISON: Chest x-ray dated 08/07/2017. TECHNIQUE: Portable AP semierect view of the chest was obtained. FINDINGS: The cardiac mediastinal silhouette is enlarged, unchanged from the prior study. Calcification, ectasia and tortuosity of the aorta is noted. Low lung volumes are seen. The patient's chin overlies the upper chest, limiting assessment. There are some linear opacities seen in the lung bases bilaterally, left greater than right, similar to the previous study, likely due to atelectasis, though subtle patchy pneumonia in the left lung base cannot be excluded. No significant pleural effusion or pneumothorax is seen. Bony structures are grossly unremarkable. IMPRESSION: 1. Limited assessment. 2. Enlarged cardiac mediastinal silhouette. 3. Low lung volumes with question of subtle pneumonia versus atelectasis in left lung base and mild atelectatic changes in the right lung base. The appearance is unchanged from prior study.
[2017-08-08 22:30] VITALS: BP 110/70
[2017-08-09 06:35] VITALS: BP 96/60
--- NOTE | 2017-08-09 10:21 | PN- Housestaff ---
Jung BETH,Jarad 08/09/17 1021: Subjective Follow-up For: CVA Tele-Events Since Last Visit: Atrial fibrillation Subjective: Patient was seen and examined today. Patient is arousable but drowsy. Follows simple commands. Patient reports no pain. Patient refuses to answer any other questions. Review of Systems Constitutional: Reports: see HPI. Objective Last 24 Hrs of Vital Signs/I&O Vital Signs Date Time Temp Pulse Resp B/P B/P Pulse O2 O2 Flow FiO2 Mean Ox Delivery Rate 08/09 2127 98.1 91 22 96/60 99 08/09 2125 Room Air 08/09 1442 97.1 90 20 90/58 93 08/09 0800 94 Room Air 08/09 0635 98.1 83 20 96/60 94 Room Air Intake & Output 08/09 1600 08/09 0800 08/09 0000 Intake Total 149 477 7721 Output Total Balance 248 577 1018 Intake, IV 486 087 3830 Intake, Oral 0 0 Patient 172 lb Weight Physical Exam General Appearance: No Acute Distress, drowsy but arousable Skin Temp/Moisture Exam: Warm/Dry HEENT: PERRLA Cardiovascular: Normal S1, Normal S2, irregular rate Lungs: Normal Air Movement Abdomen: Normal Bowel Sounds, Soft, No Tenderness Neurological: incomplete neuro exam as patient only follows few commands. unable to assess strength. Limited exam reveals intact sensation. Patient unable to open left eye. Extremities: No Clubbing, No Cyanosis, No Edema, Normal Pulses, No Tenderness/ Swelling Current Medications: Current Medications Sig/Ignacio Start time Last Medication Dose Route Stop Time Status Admin Aspirin 300 MG DAILY 08/08 1000 AC 08/09 MS 1005 Dextrose/Sodium 1,000 ML Q13H 08/07 1845 AC 08/09 Chloride IV 1814 Enoxaparin Sodium 40 MG DAILY 08/08 1000 AC 08/09 SC 1006 Erythromycin 1 NATY 4 TIMES/DAY 08/07 183 AC 08/09 OPH 2016 Potassium Chloride 10 MEQ Q1H 08/09 2000 DC 08/09 IV 08/09 2101 2151 Valproate Sodium 125 MG BID 08/07 2199 AC 08/09 Sodium Chloride 50 ML IV 2014 Last 24 Hrs of Lab/Robert Results Last 24 Hrs of Labs/Mics: Laboratory Tests 08/09/17 1035: Anion Gap 4 L, Estimated GFR > 60, BUN/Creatinine Ratio 22.0, CBC w Diff NO MAN DIFF REQ, RBC 3.62 L, MCV 90.8, MCH 30.2, MCHC 33.3, RDW 14.4, MPV 7.8, Gran % 70.0, Lymphocytes % 14.9 L, Monocytes % 10.1 H, Eosinophils % 4.5, Basophils % 0.5, Absolute Granulocytes 3.6, Absolute Lymphocytes 0.8 L, Absolute Monocytes 0.5, Absolute Eosinophils 0.2, Absolute Basophils 0 08/09/17 0353: Lactic Acid Cancelled 08/09/17 0110: Lactic Acid 1.5 Assessment/Plan Assessment: 87 y M, left side hemiparesis and change in mental status PMH of afib (on Asprin), thyrotoxicosis, HTN, MDD and parkinsons VS, Ph Ex at admission: Right-sided hemiparesis, conjunctivitis, BP 97/62, then increased to 11 9/64, MS 84, RR 20, no fever Labs at admission: Hgb 13.7, WBC 7.6, PLT 155, BEP insignificant, lactic acid 2.4, alkaline phosphatase 195, albumin 3.1, Imagings at admission: Head CT: There are no acute bleeds or territorial infarct. There is extensive chronic microvascular ischemic disease, and a small area of more acute ischemia cannot be excluded on the basis of this study. Patient was admitted to telemetry floor for management of following conditions: Left side weakness, change in mental status CVA left hemiparesis could be best explained by a new CVA, specifically considering underlying afib and on only asprin. Echo: 1. This was a technically difficult study 2. Mild aortic sclerosis is present with no valvular stenosis. Minimal aortic insufficiency is present. 3. Mitral leaflet thickening is present with mild mitral insufficiency and moderate left atrial enlargement. 4. A small circumferential pericardial effusion is present which is hemodynamically insignificant. 5. The left ventricular chamber size is normal with hyperdynamic systolic function. The ejection fraction is greater than 70%. There are no obvious resting wall motion abnormalities. 6. The right heart structures were not well visualized. Mild tricuspid insufficiency is present. There is no evidence of pulmonary hypertension. 7. There appears to be lipomatous atrial septal hypertrophy present. 8. The patient appeared to be in atrial fibrillation during the examination. Further evaluation with ECG or Holter monitor is recommended if clinically indicated. Today patient continued to remain drowsy. Followed simple commands. Patient is currently NPO pending repeat swallow evaluation on 08/11. Patient is on IV fluids. - Continue telemetry floor - neurochecks, vital checks - Failed swallow evaluation, would be repeated tomorrow - NPO pending swallow evaluation - Rectal aspirin 300 mg - Follow neurology note - Patient is hypotensive. Will hold SUKHJINDER today. Restart once bp has improved. - Lipitor 40 mg by mouth after passing swallow evaluation - PT evalaution Chronic medical condition, A. fib, hypertension Patient is still, we will monitor patient and start home medication after passing the test. We will administer IV medications if needed NPO pending swallow evaluation DVT ppx: PHARMACOLOGICAL AND ALPS DNR/DNI Problem List: 1. CVA (cerebral vascular accident) Pain Ratin Pain Location: n/a Pain Goal: Remain pain free Pain Plan: continue current plan Tomorrow's Labs & Rationales: bep cbc Leandro Morgan MD 08/09/17 2240: Attending MD Review Statement Attending Statement Attending MD Statement: examined this patient, discuss w/resident/PA/DIRECTOR OF PHYSICAL EDUCATION, agreed w/resident/PA/DIRECTOR OF PHYSICAL EDUCATION, reviewed EMR data (avail), amended to note Attending Assessment/Plan: The patient was seen and discussed with house staff. ? slight improvement with patient following simple commands. Will continue IV fluids at present and ASA suppositories. Re-check swallow on 08/11. Pending this result may be able to feed. Will need to have goals of care discussion with family. No acute changes in condition today.
[2017-08-09 11:00] LABS: ABSOLUTE BASOPHIL COUNT 0 /CUMM (0.0-0.2); ABSOLUTE EOSINOPHIL COUNT 0.2 /CUMM (0.0-0.7); ABSOLUTE LYMPH COUNT 0.8 /CUMM (1.2-3.4); ABSOLUTE MONOCYTE COUNT 0.5 /CUMM (0.10-0.60); PLATELET COUNT 131 /CUMM (130-400); WHITE BLOOD CELL COUNT 5.2 /CUMM (4.8-10.8)
[2017-08-09 11:17] LABS: ABSOLUTE GRANULOCYTE CT 3.6 /CUMM (1.4-6.5); BASOPHIL % 0.5 % (0.0-2.0); EOSINOPHIL % 4.5 % (0-5); HEMATOCRIT 32.8 % (42-52); MEAN CORPUSCULAR HGB 30.2 PG (27.0-31.0); MEAN CORPUSCULAR HGB CONC 33.3 G/DL (33.0-37.0); MEAN CORPUSCULAR VOLUME 90.8 FL (80.0-94.0); MEAN PLATELET VOLUME 7.8 FL (7.4-10.4); RBC DISTRIBUTION WIDTH 14.4 % (11.5-14.5); RED BLOOD CELL CT 3.62 /CUMM (4.70-6.10)
[2017-08-09 14:42] VITALS: BP 90/58
[2017-08-09 21:28] VITALS: BP 96/60
[2017-08-10 06:27] VITALS: BP 116/78
[2017-08-10 07:39] LABS: ABSOLUTE BASOPHIL COUNT 0 /CUMM (0.0-0.2); ABSOLUTE EOSINOPHIL COUNT 0.2 /CUMM (0.0-0.7); ABSOLUTE GRANULOCYTE CT 3.8 /CUMM (1.4-6.5); ABSOLUTE LYMPH COUNT 0.9 /CUMM (1.2-3.4); ABSOLUTE MONOCYTE COUNT 0.6 /CUMM (0.10-0.60); BASOPHIL % 0.4 % (0.0-2.0); EOSINOPHIL % 4.4 % (0-5); GRANULOCYTE % 68.8 % (42.2-75.2); HEMATOCRIT 34.3 % (42-52); MEAN CORPUSCULAR HGB 30.4 PG (27.0-31.0); MEAN CORPUSCULAR HGB CONC 33.7 G/DL (33.0-37.0); MEAN CORPUSCULAR VOLUME 90.3 FL (80.0-94.0); MEAN PLATELET VOLUME 8.2 FL (7.4-10.4); PLATELET COUNT 141 /CUMM (130-400); RBC DISTRIBUTION WIDTH 14.4 % (11.5-14.5); WHITE BLOOD CELL COUNT 5.5 /CUMM (4.8-10.8)
[2017-08-10 14:06] VITALS: BP 120/72
--- NOTE | 2017-08-10 14:06 | PN- Housestaff ---
See Addendum Subjective Follow-up For: CVA Tele-Events Since Last Visit: Aquilino santos, pulse rate 86-93 Subjective: Patient visited today, was lying in bed comfortably in no acute distress, was alert. Patient demonstrated improved in mentation, was opening eyes and squeezing finger. Patient is not fully cooperative for complete physical exam, review of system. No fever. Patient Failed swallow evalution again, planned to repeat tomorrow. Review of Systems Constitutional: Reports: see HPI. Objective Last 24 Hrs of Vital Signs/I&O Vital Signs Date Time Temp Pulse Resp B/P B/P Pulse O2 O2 Flow FiO2 Mean Ox Delivery Rate 08/10 1406 98.1 71 20 120/72 95 Room Air 08/10 08 94 Room Air 08/10 0627 98.4 85 18 116/78 94 Room Air 08/09 212 98.1 91 22 96/60 99 08/09 2125 Room Air Intake & Output 08/10 1600 08/10 0800 08/10 0000 Intake Total 800 600 925 Output Total Balance 800 600 925 Intake, IV 800 600 925 Intake, Oral 0 0 0 Number 0 0 Bowel Movements Physical Exam General Appearance: No Acute Distress, response to verbal stimuli, improvement in following orders, squeezes finger Skin: No Significant Lesion Skin Temp/Moisture Exam: Warm/Dry HEENT: Atraumatic, EOMI, Mucous Membr. moist/pink Cardiovascular: Normal S1, Normal S2, irregular Lungs: Normal Air Movement Abdomen: Soft, No Tenderness Neurological: As noted above Extremities: No Edema Current Medications: Current Medications Sig/Ignacio Start time Last Medication Dose Route Stop Time Status Admin Aspirin 300 MG DAILY 08/08 1000 AC 08/10 GA 0855 Dextrose/Sodium 1,000 ML Q13H 08/07 1845 AC 08/10 Chloride IV 1624 Enoxaparin Sodium 40 MG DAILY 08/08 1000 AC 08/10 SC 0854 Erythromycin 1 NATY 4 TIMES/DAY 08/07 1837 AC 08/10 OPH 1802 Influenza Virus 0.5 ML ONCE ONE 08/10 1445 DC Vaccine IM 08/10 1446 Potassium Chloride 10 MEQ Q1H 08/09 1999 DC 08/09 IV 08/09 2101 2151 Valproate Sodium 125 MG BID 08/07 220 AC 08/10 Sodium Chloride 50 ML IV 0922 Last 24 Hrs of Lab/Robert Results Last 24 Hrs of Labs/Mics: Laboratory Tests 08/10/17 0611: Anion Gap 8, Estimated GFR > 60, BUN/Creatinine Ratio 13.3, CBC w Diff NO MAN DIFF REQ, RBC 3.80 L, MCV 90.3, MCH 30.4, MCHC 33.7, RDW 14.4, MPV 8.2, Gran % 68.8, Lymphocytes % 15.9 L, Monocytes % 10.5 H, Eosinophils % 4.4, Basophils % 0.4, Absolute Granulocytes 3.8, Absolute Lymphocytes 0.9 L, Absolute Monocytes 0.6, Absolute Eosinophils 0.2, Absolute Basophils 0 Assessment/Plan Assessment: 87 y M, left side hemiparesis and change in mental status PMH of afib (on Asprin), thyrotoxicosis, HTN, MDD and parkinsons VS, Ph Ex at admission: Right-sided hemiparesis, conjunctivitis, BP 97/62, then increased to 11 9/64, GA 84, RR 20, no fever Labs at admission: Hgb 13.7, WBC 7.6, PLT 155, BEP insignificant, lactic acid 2.4, alkaline phosphatase 195, albumin 3.1, Imagings at admission: Head CT: There are no acute bleeds or territorial infarct. There is extensive chronic microvascular ischemic disease, and a small area of more acute ischemia cannot be excluded on the basis of this study. Patient was admitted to telemetry floor for management of following conditions: Left side weakness, change in mental status CVA left hemiparesis could be best explained by a new CVA, specifically considering underlying afib and on only asprin. Echo: 1. This was a technically difficult study 2. Mild aortic sclerosis is present with no valvular stenosis. Minimal aortic insufficiency is present. 3. Mitral leaflet thickening is present with mild mitral insufficiency and moderate left atrial enlargement. 4. A small circumferential pericardial effusion is present which is hemodynamically insignificant. 5. The left ventricular chamber size is normal with hyperdynamic systolic function. The ejection fraction is greater than 70%. There are no obvious resting wall motion abnormalities. 6. The right heart structures were not well visualized. Mild tricuspid insufficiency is present. There is no evidence of pulmonary hypertension. 7. There appears to be lipomatous atrial septal hypertrophy present. 8. The patient appeared to be in atrial fibrillation during the examination. Further evaluation with ECG or Holter monitor is recommended if clinically indicated. Today patient continued to remain drowsy. Followed simple commands. Patient is currently NPO pending repeat swallow evaluation on 08/11. Patient is on IV fluids. Rather than mild imporvement in mental condition patient remained relatively stable. - Continue telemetry floor - neurochecks, vital checks - Failed swallow evaluation, would be repeated tomorrow - NPO pending swallow evaluation - Rectal aspirin 300 mg - Follow neurology note - Patient is hypotensive. Will hold SUKHJINDER today. Restart once bp has improved. - Lipitor 40 mg by mouth after passing swallow evaluation - PT evalaution Chronic medical condition, A. fib, hypertension Patient is still, we will monitor patient and start home medication after passing the test. We will administer IV medications if needed NPO pending swallow evaluation DVT ppx: PHARMACOLOGICAL AND ALPS DNR/DNI Problem List: 1. CVA (cerebral vascular accident) Pain Ratin Pain Location: None Pain Goal: Pain 4 or less Pain Plan: Continue current plan Tomorrow's Labs & Rationales: CBc BEP
[2017-08-10 21:27] VITALS: BP 122/78
[2017-08-11 07:21] VITALS: BP 106/68
[2017-08-11 08:07] LABS: ABSOLUTE BASOPHIL COUNT 0 /CUMM (0.0-0.2); ABSOLUTE EOSINOPHIL COUNT 0.2 /CUMM (0.0-0.7); ABSOLUTE GRANULOCYTE CT 3.4 /CUMM (1.4-6.5); ABSOLUTE LYMPH COUNT 0.7 /CUMM (1.2-3.4); ABSOLUTE MONOCYTE COUNT 0.5 /CUMM (0.10-0.60); BASOPHIL % 0.6 % (0.0-2.0); EOSINOPHIL % 3.6 % (0-5); GRANULOCYTE % 71.6 % (42.2-75.2); HEMATOCRIT 32.8 % (42-52); MEAN CORPUSCULAR HGB 30.4 PG (27.0-31.0); MEAN CORPUSCULAR HGB CONC 33.8 G/DL (33.0-37.0); MEAN CORPUSCULAR VOLUME 89.9 FL (80.0-94.0); MEAN PLATELET VOLUME 8.1 FL (7.4-10.4); PLATELET COUNT 145 /CUMM (130-400); RBC DISTRIBUTION WIDTH 14.4 % (11.5-14.5); RED BLOOD CELL CT 3.64 /CUMM (4.70-6.10); WHITE BLOOD CELL COUNT 4.8 /CUMM (4.8-10.8)
--- NOTE | 2017-08-11 08:13 | PN- Housestaff ---
See Addendum Subjective Follow-up For: CVA Tele-Events Since Last Visit: aflutter/afib IL 71-106 Subjective: Patient visited today, was lying in bed comfortably in no acute distress, was alert. Patient demonstrated little improved in mentation, was opening eyes and squeezing finger. Patient is not fully cooperative for complete physical exam or review of system. No fever. Patient Failed swallow evalution again today, planned to repeat tomorrow. Patient family contacted regarding nutrition options vs change of code status. Planned to have meeting with family and hospice nursing tomorrow AM. Review of Systems Constitutional: Reports: see HPI. Objective Last 24 Hrs of Vital Signs/I&O Vital Signs Date Time Temp Pulse Resp B/P B/P Pulse O2 O2 Flow FiO2 Mean Ox Delivery Rate 08/11 1425 98.1 77 20 120/60 96 Room Air 08/11 0800 Room Air 08/11 0721 97.4 78 20 106/68 96 Room Air 08/11 0000 Room Air 08/10 2127 98.4 95 20 122/78 96 Intake & Output 08/11 1600 08/11 0800 08/11 0000 Intake Total 800 800 350 Output Total Balance 800 800 350 Intake, IV 800 800 350 Intake, Oral 0 0 Number 0 Bowel Movements Physical Exam General Appearance: No Acute Distress, as noted above Skin: No Significant Lesion Skin Temp/Moisture Exam: Warm/Dry Sepsis Skin Exam (color): Normal for Ethnicity HEENT: Atraumatic, right side facial droop Cardiovascular: Normal S1, Normal S2, irregular Neurological: as noted above Current Medications: Current Medications Sig/Ignacio Start time Last Medication Dose Route Stop Time Status Admin Acetaminophen 1,000 MG ONCE ONE 08/10 2345 DC 08/11 N/A 1 UNIT IV 08/10 2359 0111 Aspirin 300 MG DAILY 08/08 1000 AC 08/11 IL 1024 Dextrose/Sodium 1,000 ML Q13H 08/07 1845 DC 08/11 Chloride IV 0312 Enoxaparin Sodium 40 MG DAILY 08/08 1000 AC 08/11 SC 0937 Erythromycin 1 NATY 4 TIMES/DAY 08/07 1837 AC 08/11 OPH 1336 Potassium Chloride 20 MEQ Q10H 08/11 1330 AC 08/11 Dextrose/Sodium 1,000 ML IV 08/12 0929 1336 Chloride Valproate Sodium 125 MG BID 08/07 2200 AC 08/11 Sodium Chloride 50 ML IV 0930 Last 24 Hrs of Lab/Robert Results Last 24 Hrs of Labs/Mics: Laboratory Tests 08/11/17 0625: Anion Gap 7, Estimated GFR > 60, BUN/Creatinine Ratio 8.3, CBC w Diff NO MAN DIFF REQ, RBC 3.64 L, MCV 89.9, MCH 30.4, MCHC 33.8, RDW 14.4, MPV 8.1, Gran % 71.6, Lymphocytes % 14.4 L, Monocytes % 9.8 H, Eosinophils % 3.6, Basophils % 0.6, Absolute Granulocytes 3.4, Absolute Lymphocytes 0.7 L, Absolute Monocytes 0.5, Absolute Eosinophils 0.2, Absolute Basophils 0 Assessment/Plan Assessment: 87 y M, left side hemiparesis and change in mental status PMH of afib (on Asprin), thyrotoxicosis, HTN, MDD and parkinsons VS, Ph Ex at admission: Right-sided hemiparesis, conjunctivitis, BP 97/62, then increased to 11 9/64, IL 84, RR 20, no fever Labs at admission: Hgb 13.7, WBC 7.6, PLT 155, BEP insignificant, lactic acid 2.4, alkaline phosphatase 195, albumin 3.1, Imagings at admission: Head CT: There are no acute bleeds or territorial infarct. There is extensive chronic microvascular ischemic disease, and a small area of more acute ischemia cannot be excluded on the basis of this study. Patient was admitted to telemetry floor for management of following conditions: Left side weakness, change in mental status CVA left hemiparesis could be best explained by a new CVA, specifically considering underlying afib and on only asprin. Echo: 1. This was a technically difficult study 2. Mild aortic sclerosis is present with no valvular stenosis. Minimal aortic insufficiency is present. 3. Mitral leaflet thickening is present with mild mitral insufficiency and moderate left atrial enlargement. 4. A small circumferential pericardial effusion is present which is hemodynamically insignificant. 5. The left ventricular chamber size is normal with hyperdynamic systolic function. The ejection fraction is greater than 70%. There are no obvious resting wall motion abnormalities. 6. The right heart structures were not well visualized. Mild tricuspid insufficiency is present. There is no evidence of pulmonary hypertension. 7. There appears to be lipomatous atrial septal hypertrophy present. 8. The patient appeared to be in atrial fibrillation during the examination. Further evaluation with ECG or Holter monitor is recommended if clinically indicated. Patient continued to remain drowsy. Followed simple commands. Patient is currently NPO pending repeat swallow evaluation on 08/11. Patient is on IV fluids. Rather than mild imporvement in mental condition patient remained relatively stable. - Continue telemetry floor - neurochecks, vital checks - Failed swallow evaluation, would be repeated tomorrow - NPO pending swallow evaluation - Rectal aspirin 300 mg - Follow neurology note - Patient is hypotensive. Will hold SUKHJINDER today. Restart once bp has improved. - Lipitor 40 mg by mouth after passing swallow evaluation - PT evalaution - family meeting tomorrow for possible hospice coding Chronic medical condition, A. fib, hypertension Patient is still, we will monitor patient and start home medication after passing the test. We will administer IV medications if needed NPO pending swallow evaluation DVT ppx: PHARMACOLOGICAL AND ALPS DNR/DNI Problem List: 1. CVA (cerebral vascular accident) Pain Ratin Pain Location: NA Pain Goal: Pain 4 or less Pain Plan: NA Tomorrow's Labs & Rationales: BEP
--- NOTE | 2017-08-11 10:45 | ULTRASOUND REPORT ---
EXAMINATION: US TRIPLEX UPPER EXTREMITY, LEFT CLINICAL INFORMATION: Left upper extremity edema, swelling, cold, and tender. COMPARISON: None TECHNIQUE: Color-flow triplex imaging with spectral analysis and compression Doppler were performed on the left upper extremity. FINDINGS: The left internal jugular, subclavian, axillary, brachial, basilic and cephalic veins are widely patent. Subtle subcutaneous edema pattern is noted around the basilic vein. IMPRESSION: No evidence of venous thrombosis at left upper extremity.
[2017-08-11 14:25] VITALS: BP 120/60
[2017-08-11 22:23] VITALS: BP 110/60
[2017-08-12 05:45] VITALS: BP 98/60
--- NOTE | 2017-08-12 07:16 | PN- Housestaff ---
See Addendum Subjective Follow-up For: CVA with L side weakness Tele-Events Since Last Visit: GM hold Subjective: Patient noncommunicative but able to follow some commands Review of Systems Constitutional: Reports: see HPI. Objective Last 24 Hrs of Vital Signs/I&O Vital Signs Date Time Temp Pulse Resp B/P B/P Pulse O2 O2 Flow FiO2 Mean Ox Delivery Rate 08/12 1439 96.9 86 18 96/70 97 Room Air 08/12 0800 Room Air 08/12 0545 97.5 88 20 98/60 99 08/12 0000 Room Air 08/11 2223 97.0 92 20 110/60 92 Room Air Intake & Output 08/12 1600 08/12 0800 08/12 0000 Intake Total 650 800 400 Output Total Balance 650 800 400 Intake, IV 650 800 400 Intake, Oral 0 0 Physical Exam General Appearance: Unable to assess orientation. Patient noncommunicative HEENT: L eyelid closed, L facial droop Cardiovascular: Normal S1, Normal S2, Irregulate rate Lungs: Clear to Auscultation, Normal Air Movement Abdomen: Normal Bowel Sounds, Soft, No Tenderness Extremities: L arm swelling Current Medications: Current Medications Sig/Ignacio Start time Last Medication Dose Route Stop Time Status Admin Aspirin 300 MG DAILY 08/08 1000 DCD 08/12 ND 1034 Enoxaparin Sodium 40 MG DAILY 08/08 1000 DCD 08/12 SC 0848 Erythromycin 1 NATY 4 TIMES/DAY 08/07 1837 DCD 08/12 OPH 1453 Potassium Chloride 20 MEQ CONTINOUS INFUSION 08/12 1015 CAN IV Potassium Chloride 20 MEQ Q20H 08/12 1015 DCD 08/12 Dextrose/Sodium 1,000 ML IV 1034 Chloride Potassium Chloride 20 MEQ Q10H 08/11 1330 DC 08/11 Dextrose/Sodium 1,000 ML IV 08/12 0929 2349 Chloride Valproate Sodium 125 MG BID 08/07 2200 DCD 08/12 Sodium Chloride 50 ML IV 0848 Last 24 Hrs of Lab/Robert Results Last 24 Hrs of Labs/Mics: Laboratory Tests 08/12/17 0705: Anion Gap 6, Estimated GFR > 60, BUN/Creatinine Ratio 4.3 L Assessment/Plan Assessment: 87 y M PMH of afib (on Asprin), thyrotoxicosis, HTN, MDD and parkinsons left side hemiparesis and change in mental status Active issues: Left side weakness 2/[address]:There are no acute bleeds or territorial infarct. There is extensive chronic microvascular ischemic disease, and a small area of more acute ischemia cannot be excluded on the basis of this study. Echo: A small circumferential pericardial effusion is present which is hemodynamically insignificant. EF>70%. * Continue aspirin * NPO pending swallow evaluation * Neurology recommendations appreciated * Hold SUKHJINDER today. Restart once bp has improved * Hold Lipitor 40 mg * PT evalaution * family meeting today for possible hospice Hx of A. fib, hypertension * continue home meds NPO pending swallow evaluation DVT ppx: Enoxaparin, ALPS Code: DNR/DNI Problem List: 1. CVA (cerebral vascular accident) Pain Ratin Pain Location: NA Pain Goal: Remain pain free Pain Plan: NA Tomorrow's Labs & Rationales: None
--- NOTE | 2017-08-12 13:04 | Event Note ---
Event Note Event Note: Per discussion between family and Dr. Morgan patient will be going back to [facility] on hospice.
--- NOTE | 2017-08-12 13:06 | Discharge Summary ---
See Addendum Visit Information Visit Dates Admission Date: 08/07/17 Discharge Date: 08/12/2017 Hospital Course Course Attending Physician: Leandro Morgan MD [facility]: 87-year-old man with history of A. fib on aspirin, hypertension, Parkinson's, depression was brought by ambulance from [facility] chief complaint of facial drooling, altered mental status, weakness of the left side. Information was obtained from the nursing: in a.m. he had altered mental status as well as unable to follow commands or answer questions. Upon the interview patient was not cooperative however he was able to tell his name and his date of . ROS was unobtainable from the patient. Physical exam was limited due to patient uncooperation. Heart S1-S2 normal with irregular rate Lungs Limited exam clear frontally Abdomen nontender Patient was able to move his right upper and right lower extremities strengths 4 /5 Unable to take reaction to the light on the right eye due to patient uncooperation left eye was reactive to the light Negative babinisky stest right extremity and questionable babinski test on the left lower extremity Patient failed swallow eval EKG showed A. fib, low voltage, heart rate 83, QTC 452 CT head : 1. There are no acute bleeds or territorial infarct. There is extensive chronic microvascular ischemic disease, and a small area of more acute ischemia cannot be excluded on the basis of this study. orbital ct : IMPRESSION: 1. There is mild soft tissue swelling along the left infraorbital soft tissues laterally. Both globes appear intact. Suboptimal study due to patient positioning and angulation. patient was admitted to telemetry floor and treated for these medical conditions CVA with lactic acidosis Patient for swallow evaluation for couple of times and was put on IV hydration with potassium. Lactic acid normalized after adequate IV hydration. echo did not show any thrombus in the heart. Patient was given aspirin rectally due to failed swallow evaluation. Per discussion with the family patient scored distended and changed to hospice upon discharge to [facility].VS stable during the hospitalization History of Parkinson's as well as mood disorder He continued typical anteriorly but we are unable to give any other medication to place while evaluation. Patient will be discharge as hospice to [facility]. all meds except vitamins were dc upon discharge. Allergies: Coded Allergies: selegiline (UNKNOWN 08/07/17) Pertinent Lab Results: PATIENT: LONI DAVISON PRESENT AGE: 87 PATIENT ACCOUNT NO: [id number] : [birth year] LOCATION: ER ORDERING PHYSICIAN: González CHO SERVICE DATE: 08/07/17 EXAM TYPE: CAT - CT HEAD WO IV CONTRAST EXAMINATION: CT HEAD WITHOUT CONTRAST CLINICAL INFORMATION: Left-sided weakness, CVA. COMPARISON: None. TECHNIQUE: Contiguous axial imaging was performed from the skull base to vertex without intravenous administration of contrast. DLP: 578.89 mGy-cm FINDINGS: There is no evidence of acute intracranial hemorrhage or territorial infarction. No abnormal mass effect or midline shift is seen. Grubbs to white matter differentiation is well preserved. No extra-axial fluid collections are identified. The ventricles and sulci are commensurately prominent consistent with severe diffuse volume loss. There is extensive low attenuation in the periventricular and subcortical white matter, consistent with chronic microvascular ischemic disease. There are lacunar infarcts in the basal ganglia bilaterally. There are mild calcifications of the cavernous internal carotid arteries bilaterally. There are no acute fractures. There are no large scalp contusions or hematomas. There is trace fluid at the left mastoid tip. The visualized paranasal sinuses are well-aerated. IMPRESSION: 1. There are no acute bleeds or territorial infarct. There is extensive chronic microvascular ischemic disease, and a small area of more acute ischemia cannot be excluded on the basis of this study. 2. This critical result was discussed with González Vuong by telephone on 08/07/2017 1:19 PM and it was ascertained that the content and urgency of the report was understood at the time of direct communication. DICTATED BY: Juan David Reddy MD DATE/TIME DICTATED:08/07/171310 BIT SHARPENER:DMITRI DATE/TIME TRANSCRIBED:08/07/171310 CONFIDENTIAL, DO NOT COPY WITHOUT APPROPRIATE AUTHORIZATION. <Electronically signed in Other Vendor System> SIGNED BY: Juan David Reddy MD 08/07/17 1324 ========= PATIENT: LONI DAVISON PRESENT AGE: 87 PATIENT ACCOUNT NO: [id number] : [birth year] LOCATION: ER ORDERING PHYSICIAN: González CHO SERVICE DATE: 08/07/17 EXAM TYPE: CAT - CT ORBITS WO IV CONTRAST EXAMINATION: CT SCAN OF THE ORBITS WITHOUT CONTRAST CLINICAL INDICATION: Left orbital erythema. Evaluate orbital or periorbital cellulitis. COMPARISON: None. TECHNIQUE: CT scan of the orbits was obtained in the axial plane without intravenous contrast. The data was postprocessed at the industrial engineering technologist workstation with generation of coronal and sagittal reformatted images. Images are suboptimal due to patient positioning and kyphosis. DLP: 578.89 mGy-cm. FINDINGS: There is mild soft tissue swelling along the left infraorbital soft tissues laterally. The globes are symmetric. The lenses are in normal position. The extraocular muscles are symmetric and normal in appearance. The retrobulbar fat is maintained. The lacrimal glands appear normal. The superior ophthalmic veins are not well visualized. Views through the sella are unremarkable. Intracranially, there is commensurate prominence of the ventricles and sulci consistent with severe diffuse volume loss. IMPRESSION: 1. There is mild soft tissue swelling along the left infraorbital soft tissues laterally. Both globes appear intact. Suboptimal study due to patient positioning and angulation. 2. There is commensurate prominence of the ventricles and sulci consistent with severe diffuse volume loss. DICTATED BY: Juan David Reddy MD DATE/TIME DICTATED:08/07/171407 BIT SHARPENER:DMITRI DATE/TIME TRANSCRIBED:08/07/171407 CONFIDENTIAL, DO NOT COPY WITHOUT APPROPRIATE AUTHORIZATION. <Electronically signed in Other Vendor System> SIGNED BY: Juan David Reddy MD 08/07/17 1419 ========= PATIENT: LONI DAVISON PRESENT AGE: 87 PATIENT ACCOUNT NO: [id number] : [birth year] LOCATION: [facility] ORDERING PHYSICIAN: Marisa Morgan MD SERVICE DATE: 08/07/17 EXAM TYPE: US - [id number] DOPPLER EXAMINATION: DUPLEX BILATERAL CAROTID ULTRASOUND CLINICAL INFORMATION: CVA. Rule out stenosis.. COMPARISON: None. TECHNIQUE: Duplex bilateral carotid US was performed using real-time ultrasound and Doppler techniques (integrating B-mode 2D vascular images, Doppler spectral analysis and color flow Doppler imaging). These techniques were utilized to interrogate the extracranial carotid and vertebral arteries bilaterally. The degree of stenosis is based off criteria similar to NASCET. FINDINGS: No plaque is seen at the carotid bifurcations or within the internal carotid arteries. All velocities are within normal limits. The vertebral arteries are not visualized bilaterally. The external carotid arteries appear normal. IMPRESSION: No evidence of a hemodynamically significant stenosis involving the internal carotid arteries. The vertebral arteries are not visualized on the current exam. DICTATED BY: Corky Wetzel MD DATE/TIME DICTATED:08/07/171743 BIT SHARPENER:DMITRI DATE/TIME TRANSCRIBED:08/07/171743 CONFIDENTIAL, DO NOT COPY WITHOUT APPROPRIATE AUTHORIZATION. <Electronically signed in Other Vendor System> SIGNED BY: Corky Wetzel MD 1748 ======== PATIENT: LONI DAVISON PRESENT AGE: 87 PATIENT ACCOUNT NO: [id number] : [birth year] LOCATION: [facility] ORDERING PHYSICIAN: Marisa Morgan MD SERVICE DATE: 08/07/17 EXAM TYPE: RAD - XRY-PORTABLE CHEST XRAY EXAMINATION: XR PORTABLE CHEST CLINICAL INFORMATION: Coughing COMPARISON: None TECHNIQUE: Portable frontal view of the chest was obtained. FINDINGS: Low lung volumes perhaps related to suboptimal inspiratory effort. Subtle increased opacity at the bases may reflect atelectasis related to the suboptimal inspiration. Cannot exclude infiltrate. Calcification of the dorsal aorta. Cardiac silhouette within normal limits. Pulmonary vascularity normal. Bone and soft tissues unremarkable. IMPRESSION: Slightly limited exam as the lung volumes are low. Possible bilateral bibasilar atelectasis. Cannot exclude evolving infiltrate or pneumonia/aspiration DICTATED BY: Leandro Walton MD DATE/TIME DICTATED:08/07/171651 BIT SHARPENER:DMITRI DATE/TIME TRANSCRIBED:08/07/171651 CONFIDENTIAL, DO NOT COPY WITHOUT APPROPRIATE AUTHORIZATION. <Electronically signed in Other Vendor System> SIGNED BY: Leandro Walton MD 08/07 ======== PATIENT: LONI DAVISON PRESENT AGE: 87 PATIENT ACCOUNT NO: [id number] : [birth year] LOCATION: [facility] ORDERING PHYSICIAN: Marisa Morgan MD SERVICE DATE: 08/07/17 EXAM TYPE: CARD - ECHOCARDIOGRAM LONI DAVISON Age: 87 : 1930 Gender: M Exam Date: 08/07/2017 19:39 Exam Location: 1 [place] Ht (in): Wt (lb): BSA: BP: 102 / 68 Ordering Physician: Marisa Morgan MD Referring Physician: Marisa Morgan MD Technologist: Marie Ortega RDCS Room Number: 184 Indications: STROKE Rhythm: Technical Quality: Fair, Technically difficult study FINDINGS Left Ventricle Normal size left ventricle. No obvious regional wall motion abnormalities. Normal left ventricular ejection fraction estimated at 65-70%. Right Ventricle Right ventricle not well visualized, grossly normal. Right Atrium Normal right atrial size. Left Atrium Moderate left atrial dilatation. Mitral Valve Mitral valve thickened. Mild mitral regurgitation. Aortic Valve Trileaflet aortic valve. Diffuse thickening (sclerosis) of the aortic valve cusps without reduced excursion. No aortic stenosis. Trace aortic regurgitation. Tricuspid Valve Tricuspid valve not well visualized, grossly normal. Mild tricuspid regurgitation. Right ventricular systolic pressure estimated at 28 mmHg. Pulmonic Valve Pulmonic valve not well visualized, grossly normal. Pericardium Small pericardial effusion. Great Vessels Aortic root and proximal ascending aorta not well visualized, grossly normal. CONCLUSIONS 1. This was a technically difficult study 2. Mild aortic sclerosis is present with no valvular stenosis. Minimal aortic insufficiency is present. 3. Mitral leaflet thickening is present with mild mitral insufficiency and moderate left atrial enlargement. 4. A small circumferential pericardial effusion is present which is hemodynamically insignificant. 5. The left ventricular chamber size is normal with hyperdynamic systolic function. The ejection fraction is greater than 70%. There are no obvious resting wall motion abnormalities. 6. The right heart structures were not well visualized. Mild tricuspid insufficiency is present. There is no evidence of pulmonary hypertension. 7. There appears to be lipomatous atrial septal hypertrophy present. 8. The patient appeared to be in atrial fibrillation during the examination. Further evaluation with ECG or Holter monitor is recommended if clinically indicated. Dallin Becerril M.D. (Electronically Signed) Final Date: 08 August 2017 07:50 MEASUREMENTS (Male / Female) Normal Values 2D ECHO LV Diastolic Diameter PLAX 3.2 cm 4.2 - 5.9 / 3.9 - 5.3 cm LV Systolic Diameter PLAX 1.3 cm 2.1 - 4.0 cm LV Fractional Shortening PLAX 59.4 % 25 - 46 % LV Ejection Fraction 2D Teich 89.9 % IVS Diastolic Thickness 1.1 cm LVPW Diastolic Thickness 1.1 cm LV Relative Wall Thickness 0.7 RV Internal Dim ED PLAX 2.7 cm 1.9 - 3.8 cm LVOT Diameter 1.9 cm Aortic Root Diameter 3.1 cm LA Systolic Diameter LX 3.4 cm 3.0 - 4.0 / 2.7 - 3.8 cm LA Volume 41.0 cm 18 - 58 / 22 - 52 cm Ascending Aorta Diameter 3.2 cm DOPPLER AV Peak Velocity 101.0 cm/s AV Peak Gradient 4.1 mmHg AV Mean Velocity 70.4 cm/s AV Mean Gradient 2.0 mmHg AV Velocity Time Integral 25.8 cm LVOT Peak Velocity 60.2 cm/s LVOT Peak Gradient 1.4 mmHg LVOT Mean Velocity 42.5 cm/s LVOT Mean Gradient 1.0 mmHg LVOT Velocity Time Integral 14.9 cm LVOT Stroke Volume 42.2 cm AV Area Cont Eq vti 1.6 cm AV Area Cont Eq pk 1.7 cm MV Peak Velocity 112.0 cm/s MV Peak Gradient 5.0 mmHg MV Mean Velocity 59.1 cm/s MV Mean Gradient 2.0 mmHg Mitral E Point Velocity 80.9 cm/s MV PHT Velocity 118.0 cm/s MV Deceleration Martin 547.0 cm/s MV Pressure Half Time 64.7 ms MV Area PHT 3.4 cm MV Deceleration Time 180.0 ms TR Peak Velocity 250.0 cm/s TR Peak Gradient 25.0 mmHg Right Atrial Pressure 5.0 mmHg Pulmonary Artery Systolic Pressu 30.0 mmHg Right Ventricular Systolic Press 30.0 mmHg PV Peak Velocity 88.4 cm/s PV Peak Gradient 3.1 mmHg PV Mean Velocity 60.1 cm/s PV Mean Gradient 2.0 mmHg PV Velocity Time Integral 16.7 cm LV E' Lateral Velocity 8.5 cm/s Mitral E to LV E' Lateral Ratio 9.5 LV E' Septal Velocity 7.0 cm/s Mitral E to LV E' Septal Ratio 11.5 DICTATED BY: Skye Becerril MD DATE/TIME DICTATED:08/08/17749 BIT SHARPENER:DMITRI DATE/TIME TRANSCRIBED:08/08/17749 CONFIDENTIAL, DO NOT COPY WITHOUT APPROPRIATE AUTHORIZATION. <Electronically signed in Other Vendor System> SIGNED BY: Skye Becerril MD 08/08/17 0751 ======== PATIENT: LONI DAVISON PRESENT AGE: 87 PATIENT ACCOUNT NO: [id number] : [birth year] LOCATION: 1NO ORDERING PHYSICIAN: Millie Escalante MD SERVICE DATE: 08/08/171510 EXAM TYPE: RAD - XRY-PORTABLE CHEST XRAY EXAMINATION: CR PORTABLE CHEST CLINICAL INFORMATION: Coughing. Rule out aspiration. COMPARISON: Chest x-ray dated 08/07/2017. TECHNIQUE: Portable AP semierect view of the chest was obtained. FINDINGS: The cardiac mediastinal silhouette is enlarged, unchanged from the prior study. Calcification, ectasia and tortuosity of the aorta is noted. Low lung volumes are seen. The patient's chin overlies the upper chest, limiting assessment. There are some linear opacities seen in the lung bases bilaterally, left greater than right, similar to the previous study, likely due to atelectasis, though subtle patchy pneumonia in the left lung base cannot be excluded. No significant pleural effusion or pneumothorax is seen. Bony structures are grossly unremarkable. IMPRESSION: 1. Limited assessment. 2. Enlarged cardiac mediastinal silhouette. 3. Low lung volumes with question of subtle pneumonia versus atelectasis in left lung base and mild atelectatic changes in the right lung base. The appearance is unchanged from prior study. DICTATED BY: Cynthia Bautista MD DATE/TIME DICTATED:08/08/171610 BIT SHARPENER:DMITRI DATE/TIME TRANSCRIBED:08/08/171610 CONFIDENTIAL, DO NOT COPY WITHOUT APPROPRIATE AUTHORIZATION. <Electronically signed in Other Vendor System> SIGNED BY: Cynthia Bautista MD 6 ========= PATIENT: LONI DAVISON PRESENT AGE: 87 PATIENT ACCOUNT NO: [id number] : [birth year] LOCATION: 1NO ORDERING PHYSICIAN: Ozzy Groves MD SERVICE DATE: 08/11/17 EXAM TYPE: US - US-DUPLEX VENOUS EXTREM UNI EXAMINATION: US TRIPLEX UPPER EXTREMITY, LEFT CLINICAL INFORMATION: Left upper extremity edema, swelling, cold, and tender. COMPARISON: None TECHNIQUE: Color-flow triplex imaging with spectral analysis and compression Doppler were performed on the left upper extremity. FINDINGS: The left internal jugular, subclavian, axillary, brachial, basilic and cephalic veins are widely patent. Subtle subcutaneous edema pattern is noted around the basilic vein. IMPRESSION: No evidence of venous thrombosis at left upper extremity. DICTATED BY: Jyoti Brown MD DATE/TIME DICTATED:08/11/171037 BIT SHARPENER:DMITRI DATE/TIME TRANSCRIBED:08/11/171037 CONFIDENTIAL, DO NOT COPY WITHOUT APPROPRIATE AUTHORIZATION. <Electronically signed in Other Vendor System> SIGNED BY: Jyoti Brown MD 08/11/17 1045 ========= Disposition Summary Disposition Principal Diagnosis: CVA failed swallow evaluation Additional Diagnosis: afib not on anticoagulation Discharge Disposition: hospice - medical facilit Discharge Instructions General Discharge Information Code Status: Hospice Patient's Diet: regular Patient's Activity: as tolerated Follow-Up Instructions/Appts: -Your being discharged to [facility] on hospice care -Please follow-up with your primary care provider within 7 days after discharge. -We have made changes to your home medications, please read the instructions carefully. -Please come back to the hospital if your symptoms got worse. Medications at Discharge Discharge Medications: Stop taking the following medications: Aspirin (Aspirin*) 325 MG TABLET ORAL DAILY Escitalopram Oxalate (Lexapro) 10 MG TABLET ORAL DAILY Potassium Chloride (Klor-Con Sprinkle) 10 MEQ CAPSULE.ER ORAL DAILY Polyethylene Glycol 3350 (Miralax) 17 GRAM POWD.PACK ORAL DAILY Divalproex Sodium (Depakote Sprinkle) 125 MG CAP.SPRINK ORAL TWICE DAILY Metoprolol Tartrate (Metoprolol Tartrate) 25 MG TABLET ORAL TWICE DAILY Carbidopa/Levodopa (Sinemet 25-100 MG Tablet) 25 MG-100 MG TABLET ORAL THREE TIMES DAILY Lisinopril (Lisinopril) 5 MG TABLET ORAL DAILY Sennosides/Docusate Sodium (Senokot-S Tablet) 8.6 MG-50 MG TABLET ORAL AT BEDTIME Continue taking these medications: Multivitamin (Daily Value) 1 EACH TABLET 1 Tablet ORAL DAILY Comments: NOT GIVEN AT HOSPITAL Copies To: Katherine BETH,David; Dary BETH,MFranklin Artem Attending MD Review Statement Documenting Attending: Leandro Morgan MD Other Findings: The patient was seen and had meeting with daughter Jacqueline, Case Management (Janny) and Hospice nurse (Jacqueline). The patient has large hemispheric CVA and unable to swallow. Decision was for no PEG and thus best course of action is to transfer back to [facility] for Hospice Care there.
--- NOTE | 2017-08-12 13:09 | Patient Discharge Instructions ---
Discharge Instructions General Discharge Information You were seen/treated for: CVA failed swallow eval Special Instructions: -Your being discharged to [facility] on hospice care -Please follow-up with your primary care provider within 7 days after discharge. -We have made changes to your home medications, please read the instructions carefully. -Please come back to the hospital if your symptoms got worse. Diet Continue normal diet: Yes Additional DIET Information: patient is Hospice Activity Full Activity/No Limits: Yes (as tolerated) Acute Coronary Syndrome Inclusion Criteria At DC or during hospital stay patient has or had the following: ACS DIAGNOSIS No Discharge Core Measures Meds if any: Prescribed or Continued at Discharge Meds if any: NOT Prescribed or Continued at Discharge Congestive Heart Failure Inclusion Criteria At DC or during hospital stay patient has or had the following: CHF DIAGNOSIS No Discharge Core Measures Meds if any: Prescribed or Continued at Discharge Meds if any: NOT Prescribed or Continued at Discharge Cerebrovascular accident Inclusion Criteria At DC or during hospital stay patient has or had the following: CVA/TIA Diagnosis Yes Discharge Core Measures Meds if any: Prescribed or Continued at Discharge Antithrombotic Yes Statin (required if LDL =>70) No Anticoagulant No Meds if any: NOT Prescribed or Continued at Discharge No Anticoagulant d/t Medical Contraindication Venous thromboembolism Inclusion Criteria VTE Diagnosis No VTE Type NONE VTE Confirmed by (Test) NONE Discharge Core Measures - Per Current guidelines, there needs to be overlap - treatment for the first 5 days of Warfarin therapy. - If discharged on Warfarin prior to 5 days of - overlap therapy, the patient will need to be - assessed for post discharge needs including - *Post discharge parental anticoagulation - *Warfarin and/or parental anticoagulation education - *Follow up date to check INR post discharge At least 5 days overlap therapy as Inpatient No Meds if any: Prescribed or Continued at Discharge Note: Overlap Therapy is Warfarin and Anticoagulant Meds if any: NOT Prescribed or Continued at Discharge
[2017-08-12 14:39] VITALS: BP 96/70
== END 2017-08-12 16:30 | DRG 65 ==
LOC: ERH 12:42 → ERHI 14:41 → 1NO 14:41 → ENRESERV 15:22 → ENTRNSPT 17:44 → EDTRNSPT 17:57 → EDTRNSPTSTS 17:57 → 1NO 17:59 → CMPTRNSPT 18:12 → 1NO 08-09 12:21
PROVIDERS: Internal Medicine; Physician Assistant; Radiology Vascular & Interventional Radiology; Student in an Organized Health Care Education/Training Program
DX: I63.9 Cerebral infarction, unspecified (principal); G81.94 Hemiplegia, unspecified affecting left nondominant side; E87.2 Acidosis; G20 Parkinson's disease; F02.80 Dementia in other diseases classified elsewhere, unspecified severity, without behavioral disturbance, psychotic disturbance, mood disturbance, and anxiety; I48.91 Unspecified atrial fibrillation; F32.9 Major depressive disorder, single episode, unspecified; R29.810 Facial weakness
CPT/HCPCS: 1NP; 36415; 71045; 81001; 82436; 87040; 87086; 93005; 93010; 93306; 97110-GO; 97112-GO; 97166-GO; 99291; J0131; J1650; J7040; J7042